=== PATIENT | female | born 1970 | race Caucasian/White ===

== ENCOUNTER 2019-11-20 20:24 | Emergency (ER) | payer MEDICAID, SELFPAY ==
[2019-11-20 20:25] VITALS: BP 127/73; PULSE 79; RESP 18; TEMP 36.3; O2SAT 99; BMI 32.4
--- NOTE | 2019-11-20 20:33 | ED.VIS.DENTA ---
History of Present Illness Chief Complaint: Dental Informant: Patient Onset: Month(s) Context: Gradual Onset Timing: Continuous, Intermittent, Waxes and wanes Quality: Pain lower teeth Location: Right canine to left canine Current Severity: Mild Maximum Severity: Moderate Worsened by: Palpation and chewing Relieved by: NSAIDs Associated Symptoms: Jaw Swelling, - - She denies fever or chills. She denies hot or cold intolerance Narrative: Patient is a 49-year-old woman who presents with dental pain. Patient states she is embarrassed to show me her teeth. She denies facial swelling or redness. She complains of pain over the mental portion of the jaw. She denies difficulty opening closing her mouth. She denies history of medic fever, murmur, SBE, IV drug use or being immune suppressed. She is on no medication. She has no antibiotic allergy. She does not have a dentist. Prior similar symptoms: Yes Recent Illness/Hospitalization: No - Past Medical History (1) No significant past medical history Status: Acute Past Medical History - Allergies and Home Meds Allergies/Adverse Reactions: Allergies No Known Allergies Allergy (Verified 11/20/19 20:27) Primary Care Physician: NOT,DEFINED [NON-STAFF] - Prior records reviewed: No Surgical History: noncontributory Lives: Alone Smoking Status: Never smoker Alcohol: None Review of Systems General: Denies: Chills, Fever, Malaise Eyes: Denies: Visual changes - bilaterally, Blurred Vision - bilaterally ENT: Reports: - - Dental pain lower front teeth. Denies: Rhinorrhea, Sore throat Cardiovascular: Denies: Chest pain Respiratory: Denies: Dyspnea, Cough Gastrointestinal: Denies: Nausea, Vomiting Musculoskeletal: Denies: Myalgias, Arthralgias, Neck pain, Back pain, Swelling, Extremity Pain, -, - Skin: Denies: Rash, Wounds Hematologic: Denies: Easy bruising, Easy bleeding Allergy: Reports: Swelling of the mouth, Swelling of the tongue Physical Exam Vital Signs/Narrative: Vital Signs Temp Pulse Resp BP Pulse Ox 11/20/19 20:25 97.4 F L 79 18 127/73 H 99 Inital Vital Signs reviewed: Yes General: Well nourished, Well developed Head: Normocephalic, Atraumatic ENT: Moist mucous membranes, Nasal congestion, No nasal trauma, No rhinorrhea. Negative for: Sinus tenderness Mouth/Throat: Normal posterior oropharynx, No sublingual edema, Normal Stensen's duct, Dental abscess, Gingivitis, Tenderness on tooth percussion, Widespread dental decay - There is exposure of pulp and dentin from tooth number #22 through 27. There is evidence of periodontal disease. There is significant tartar buildup. There is retraction of the gingiva. There is no evidence of Ludewig's angina.. Negative for: Normal inspection lips/gums, Normal oral mucosa, No dental tenderness, Apthous ulcer, Dental trauma, Trismus Neck: Supple, No lymphadenopathy, Nontender, No JVD, Anterior submental lymphadenopathy. Negative for: Anterior submandibular lymphadenopathy, Posterior submandibular lymphadenopathy, Posterior submental lymphadenopathy, Soft tissue swelling, Submandibular soft tissue swelling Cardiovascular: Regular rate, Regular rhythm, No murmurs, Normal S1, Normal S2 Respiratory: No distress, CTA bilaterally Skin: Normal color, No rash, - - No evidence of facial cellulitis. Neurological: Alert, Oriented x3, Cranial nerves II-XII grossly intact, Normal Strength, Normal Sensation Psychological: Normal affect Diagnostic/Tx/Re-eval - Medical Decision Making And has significant dental decay with concern for apical abscess involving tooth #25 or 26. There are caries involving the canine and incisors. There is no evidence of Ludewig's angina. There is no trismus. The trachea is midline with no inspiratory expiratory stridor. She was treated with antibiotics. . She reports pain is relieved with ibuprofen. She was informed to follow-up with a dentist. ED Disposition - Plan for ED Patient: Disposition: Home or Assisted Living Diagnosis: Dental caries extending into pulp, Dental caries extending into dentine, Apical abscess Instructions: ED CAVITY Dental, ED Abscess Antibiotic Treatment Only Prescriptions: Penicillin V Potassium 500 mg PO 4X/DAY #40 tab Transmission Status: Pending to [facility] Referrals: NOT,MARTINE [NON-STAFF] - Tracy Bello [NON-STAFF] - As soon as possible
[2019-11-20] MEDS: Penicillin Vk 250 MG Tablet 500 MG PO (20:52)
== END 2019-11-20 21:01 | disposition home or self-care (01) ==
PROVIDERS: Emergency Provider Emergency Medicine
DX: K04.7 Periapical abscess without sinus (principal); K02.9 Dental caries, unspecified
CPT/HCPCS: 99283

== ENCOUNTER 2020-01-04 17:06 | Emergency (ER) | payer MEDICAID, SELFPAY ==
[2020-01-04 17:07] VITALS: BP 126/84; PULSE 90; RESP 18; TEMP 37.2; O2SAT 99; BMI 32.6
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
[2020-01-04] MEDS: Ibuprofen 600 MG Tablet PO (18:24)
[2020-01-04] MEDS: hydrOXYzine PAM 25 MG Capsule PO (18:25)
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
[2020-01-04 18:51] VITALS: RESP 16
== END 2020-01-04 18:53 | disposition home or self-care (01) ==
LOC: ED 17:30
PROVIDERS: Emergency Provider Student in an Organized Health Care Education/Training Program
DX: F41.9 Anxiety disorder, unspecified (principal); F17.200 Nicotine dependence, unspecified, uncomplicated; Z86.59 Personal history of other mental and behavioral disorders
CPT/HCPCS: 99284

== ENCOUNTER 2022-03-08 16:24 | Emergency (ER) | payer MEDICAID, SELFPAY ==
[2022-03-08 16:25] VITALS: BP 117/76; PULSE 83; RESP 15; TEMP 36.9; O2SAT 99; BMI 31.6
--- NOTE | 2022-03-08 17:33 | EDS_ITS ---
HPI History of Present Illness Chief Complaint: Lower Extremity Injury Informant: patient Onset/Context/Timing Onset: Yesterday Narrative Narrative: Patient present secondary to right foot injury. Yesterday she was barefoot and stepped on a thorny tinoco from a [employer]. She had several foreign stuck in the bottom of her foot. She scrubbed the area and try to remove everything. She also used wax over the palm of her foot and let that dry. She pulled that off to try to remove any remaining thorns. She presents today see that she still having burning in the area and is not sure that she removed everything. PFS PFS Medical History no medical history no medical history Allergy/AdvReac Type Severity Reaction Status Date / Time No Known Allergies Allergy Verified 03/08/22 16:25 Surgical History no surgical history Social History Smoking Status: Current every day smoker tobacco type: cigarettes ROS ROS ED Constitutional Constitutional ED: Denies chills or fever(s) Eyes Eyes: Denies change in vision or discharge from eye(s) ENT ENT ED: Denies discharge from eye(s), rhinorrhea or sore throat Cardiovascular Cardiovascular: Denies chest pain or palpitations Respiratory/Chest Respiratory/Chest: Denies cough or dyspnea Gastrointestinal Gastrointestinal: Denies abdominal pain, diarrhea, nausea or vomiting Genitourinary Genitourinary ED: Denies dysuria Musculoskeletal Musculoskeletal: Reports extremity pain; Denies back pain Integumentary Denies Abrasions or rash Neurologic Neurologic: Denies headache(s) or weakness Allergic/Immunologic Allergic/Immunologic ED: Denies lip swelling or urticaria EXAM Physical Exam Const Vital Signs: 03/08/22 16:25 Temperature 98.5 F Temperature Source Temporal Pulse Rate 83 Respiratory Rate 15 Blood Pressure 117/76 Blood Pressure Mean 89 Pulse Ox 99 Oxygen Delivery Method Room Air Positive well nourished and well developed General Appearance ED: well developed HEENT Reports normocephalic and head/scalp atraumatic Eyes PERRL and EOMs intact bilaterally Neck supple Chest Wall inspection of chest normal Resp normal respiratory effort Cardio regular rate and regular rhythm GI Palpation: soft Extremity Extremity Narrative: Dried wax noted to the ball of the right foot. No obvious foreign bodies appreciated. No bony tenderness. Neuro oriented x3 and no sensory deficits noted Sensorium / Orientation: alert Motor Exam: strength 5/5 throughout Psych mental status grossly normal MDM MDM MDM Narrative Medical decision making narrative: Right foot is soaked in warm soapy water. Following this patient has no further pain to the area. Area is able to be scrubbed and cleansed without difficulty. No foreign body is noted. 4 x 4 gauze pads were placed along the bottom of her foot and Herman wrap applied. Patient will watch for any sign of infection. Return instructions given. Discharge Plan Triage Chief Complaint: Lower Extremity Injury ED Provider: Pam Staples Dx/Rx/DC Orders Clinical Impression: Acute foreign body of right foot Instructions: ED Foreign Body, Soft Tissue (Removed) Primary Care Provider: Care Physician,No Primary Referrals: Tash Ramirez DO [Med Staff - Active Staff] - As Needed Care Physician,No Primary [Primary Care Provider] - Disposition Disposition: Home, Self Care
== END 2022-03-08 18:46 | disposition home or self-care (01) ==
PROVIDERS: Emergency Provider Emergency Medicine; Visit Provider Emergency Medicine
DX: S90.851A Superficial foreign body, right foot, initial encounter (principal); W22.8XXA Striking against or struck by other objects, initial encounter; F17.210 Nicotine dependence, cigarettes, uncomplicated
CPT/HCPCS: 99282

== ENCOUNTER 2022-06-04 18:36 | Emergency (ER) | payer MEDICAID, SELFPAY ==
[2022-06-04 18:37] VITALS: BP 128/79; PULSE 103; RESP 16; TEMP 36.6; O2SAT 100; BMI 31.2
--- NOTE | 2022-06-04 19:02 | EDS_ITS ---
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 Yesterday she developed left groin pain. There is a sore area in the inguinal area that is sore and painful, and somewhat tender to touch. Occasionally she has shooting pain towards her groin. She denies any fevers or chills. No chest pain or shortness of breath. No nausea or vomiting, no diarrhea or problems with bowel movements. She states that she was told by her glass washer not to sit on her foot like she usually does because she gets problems with tendinitis, but sometimes at home she will sit on her foot with her foot digging into her sciatic notch. She presents to the emergency department today mainly because she states she was using Dr. Hill. She looked up things like colon cancer and is afraid that the pain in her groin is secondary to colon cancer although she denies any rectal bleeding, constipation, problems with bowel movements, or any other things. [facility] PFS Medical History Anxiety Depression Sciatic leg pain Medical History no medical history Allergy/AdvReac Type Severity Reaction Status Date / Time No Known Allergies Allergy Verified 06/04/22 18:37 Social History Smoking Status: Current every day smoker tobacco type: cigarettes ROS ROS ED ROS Narrative Constitutional: No fever, no chills. HEENT: No sore throat. No neck pain. No loss of vision. No rhinorrhea. Cardiovascular: No chest pain. No palpitations. No pedal edema. Respiratory: No cough, no shortness of breath. Abdominal: No abdominal pain. No nausea. No vomiting. Genitourinary: No dysuria. No hematuria. Musculoskeletal: No myalgias. No arthralgias. Left inguinal groin pain. Occasional burning, radicular left leg pain. Neurologic: No headaches. No dizziness. No lightheadedness. Skin: No rash. No change in color. Psychiatric: No depression. No anxiety. EXAM Physical Exam Narrative Exam Narrative: Afebrile. Vital signs noted. HEENT: Normocephalic. Atraumatic. PERRL, EOMI. Neck soft and supple. No point tenderness or step off. Cardiovascular: Regular rate and rhythm. No murmurs, rubs, or gallops appreciated. Respiratory: No tachypnea. Lungs clear to auscultation bilaterally. Gastrointestinal: Abdomen soft, nontender, with normoactive bowel sounds. No rebound or guarding. Neurological: Awake. Alert. Nonfocal, nonlateralizing. Skin: No rash. Normal color. No pallor. Musculoskeletal: No pedal edema. Full range of motion extremities. Mild tenderness to palpation left inguinal area along musculature. Full range of motion of left hip. Neurovascular intact distally with palpable dorsalis pedis pulse. No vertebral point tenderness or bony step-off of lumbar spine. Const Vital Signs: 06/04/22 18:37 Temperature 97.9 F Temperature Source Temporal Pulse Rate 103 H Respiratory Rate 16 Blood Pressure 128/79 H Blood Pressure Mean 95 Pulse Ox 100 Oxygen Delivery Method Room Air MDM MDM MDM Narrative Medical decision making narrative: Patient's medical screening exam is negative. I am not concerned for DVT and do not feel that ultrasound is indicated. She has reproducible pain over the musculature of her left inguinal area and I do think that she has a groin strain. She is also describing sciatica. I do feel that this may be exacerbated by her sitting on her foot and aggravating that nerve. I offered her muscle relaxers but she declined. She will take [id number] medications and put ice on her sore areas. She will follow-up with her primary care physician regarding her lumbar radiculopathy as needed. There are no red flag signs for cauda equina syndrome. At this point in time, I feel she could be discharged home safely with symptomatic treatment and follow-up with her primary care provider. Return instructions to the emergency department were reviewed. Disposition is discharged home in stable condition. Discharge Plan Triage Chief Complaint: Lower Extremity Injury ED Provider: Black Briseno Dx/Rx/DC Orders Clinical Impression: Strain of left inguinal muscle, Sciatica, Encounter for medical screening examination Instructions: Low Back Leg Pain Causes, ED Groin Strain, ED Screening Exam Medical Nonurgent, ED Sciatica Primary Care Provider: Care Physician,No Primary Referrals: Care Physician,No Primary [Primary Care Provider] - Activity Restrictions/Additional Instructions: Follow-up with your primary care physician as soon as possible. Disposition Disposition: Home, Self Care
== END 2022-06-04 19:13 | disposition home or self-care (01) ==
PROVIDERS: Emergency Provider Emergency Medicine; Visit Provider Emergency Medicine
DX: S76.212A Strain of adductor muscle, fascia and tendon of left thigh, initial encounter (principal); X58.XXXA Exposure to other specified factors, initial encounter; Y93.E9 Activity, other interior property and clothing maintenance; M54.32 Sciatica, left side; M54.16 Radiculopathy, lumbar region; F17.210 Nicotine dependence, cigarettes, uncomplicated
CPT/HCPCS: 99282

== ENCOUNTER 2023-04-01 17:51 | Emergency (ER) | payer MEDICAID, SELFPAY ==
[2023-04-01 17:52] VITALS: BP 124/73; PULSE 82; RESP 18; TEMP 36.6; O2SAT 100; BMI 28.0
--- NOTE | 2023-04-01 18:14 | EDS_ITS ---
HPI History of Present Illness Chief Complaint: General Illness Detail of Chief Complaint: Right leg pain and concern for abnormal chest x-ray Informant: patient Narrative Narrative: Patient presents to the emergency department with multiple complaints. Her main complaint is that she has had pain in her right leg for several months. She sees podiatry was treating her for Achilles tendinitis and plantar fasciitis. She complains of pain just superior to her knee posteriorly. Patient feels like it is muscle type pain and feels like the pain is coming up from her Achilles and ankle and going up towards her knee and thigh. She has history of sciatica on the left side. Patient also had an appointment with her primary care physician who noted a wheeze on her exam last week and ordered a chest x-ray. Her chest x-ray was performed at another facility and she still has not had the results back yet and is very concerned about it. Patient denies fever or significant cough. She is a smoker. [facility] Medical History Anxiety Depression Sciatic leg pain Medical History no medical history Home Medications cyclobenzaprine 10 mg tablet 10 mg PO TID PRN Muscle Spasm #20 TABLETS 04/01/23 [Rx Last Taken Unknown] Allergy/AdvReac Type Severity Reaction Status Date / Time No Known Allergies Allergy Verified 04/01/23 17:52 Social History Smoking Status: Current every day smoker tobacco type: cigarettes ROS ROS ED Review of Systems ROS Unobtainable: other Constitutional Constitutional ED: Reports lethargy; Denies chills, fever(s), sweats or weight loss Eyes Eyes: Denies blurry vision, change in vision or diplopia ENT ENT ED: Denies rhinorrhea or sore throat Cardiovascular Cardiovascular: Denies chest pain, orthopnea or racing heartbeat Respiratory/Chest Respiratory/Chest: Denies cough, dyspnea, dyspnea on exertion, orthopnea or sputum Gastrointestinal Gastrointestinal: Denies abdominal pain, diarrhea, nausea or vomiting Genitourinary Genitourinary ED: Denies dysuria, hematuria or urinary frequency Musculoskeletal Musculoskeletal: Reports other Details: Right leg pain ; Denies arthralgias, back pain, myalgias or neck pain Integumentary Denies abscess, Abrasions or rash Neurologic Neurologic: Denies headache(s) or weakness Psychiatric Psychiatric: Denies anxiety, depression or suicidal thoughts Endocrine Endocrinology: Denies polydipsia, polyphagia or polyuria Hematologic/Lymphatic Hematologic/Lymphatic: Denies easy bleeding, easy bruising or lymphadenopathy Allergic/Immunologic Allergic/Immunologic ED: Denies mouth swelling, tongue swelling or urticaria EXAM Physical Exam Const Vital Signs: 04/01/23 17:52 Temperature 98 F Temperature Source Temporal Pulse Rate 82 Respiratory Rate 18 Blood Pressure 124/73 H Blood Pressure Mean 90 Pulse Ox 100 Oxygen Delivery Method Room Air Positive well nourished and well developed General Appearance ED: well developed and NAD HEENT Reports TM's clear and moist mucous membranes normocephalic and atraumatic; Negative for trauma or tenderness Tympanic Membrane ED: Yes TM's clear Eyes PERRL and EOMs intact bilaterally General Eye ED: Negative for pale conjunctiva or scleral icterus Neck no lymphadenopathy, supple and no JVD General: Negative for tenderness Chest Wall inspection of chest normal and palpation of chest normal Chest: Negative for tenderness Resp normal respiratory effort and clear to auscultation bilaterally Effort and Inspection: Negative for respiratory distress or pain with movement Auscultation: Negative for rhonchi, wheezes or diminished lung sounds Cardio regular rate, regular rhythm, S1 normal heart sound, S2 normal heart sound and no murmurs Peripheral Pulses: pulses 2+ throughout GI normal to inspection, nondistended, normoactive bowel sounds, soft to palpation, non-tender, non-distended and no masses Back/Spine no CVA tenderness and no thoracic nor lumbar tenderness Extremity normal to inspection Extremity Narrative: Right leg-patient has some tenderness palpation over the right posterior distal thigh and hamstrings that seems to reproduce her pain. There is no ropes or cords palpated. No significant edema or swelling of the extremity. There is no engorged veins noted. Neurovascular intact General Extremety ED: Negative for edema General Extremity: Negative for edema Neuro oriented x3, CN's II-XII intact bilaterally, no sensory deficits noted and gait normal Sensorium / Orientation: awake, alert, oriented to person, oriented to place and oriented to time Motor Exam: strength 5/5 throughout and strength abnormal Psych mental status grossly normal Skin no rashes or lesions noted and no wounds MDM MDM MDM Narrative Medical decision making narrative: Patient had a chest x-ray that was normal. I did order a ultrasound to rule out DVT of the right lower extremity which will have to be done tomorrow. I will write her prescription for Flexeril for her neck muscle pain. 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 Radiography Diagnostic Testing: Clinical Impression(s) from Imaging Studies Chest X-Ray 04/01/23 18:19 IMPRESSION: No radiographic evidence of acute cardiopulmonary disease. Electronically Signed: John Kent MD at 19:06 EDT , 1 view chest x-ray obtained interpreted by myself as no evidence of infiltrate or pneumothorax or acute disease process. Radiology in agreement. Discharge Plan Triage Chief Complaint: General Illness ED Provider: Tania Renner Dx/Rx/DC Orders Clinical Impression: Leg pain, right, Neck pain Instructions: ED Neck Pain, ED Pain, Acute, Uncertain Cause Prescriptions: New cyclobenzaprine [cyclobenzaprine] 10 mg tablet 10 mg PO TID PRN (Reason: Muscle Spasm) Qty: 20 0RF Primary Care Provider: Moe Marks Referrals: Care Physician,No Primary [Non-Staff] - 3-5 Days Disposition Disposition: Home, Self Care Discharge Date/Time: 04/01/23 19:30
--- NOTE | 2023-04-01 18:19 | RAD_ITS ---
INDICATION: Hypertension EXAMINATION/TECHNIQUE: X-RAY - portable upright AP chest x-ray COMPARISON: None. FINDINGS: LINES/DEVICES: None. LUNGS: No consolidation, edema or effusion. No pneumothorax. MEDIASTINUM AND CARDIOVASCULAR STRUCTURES: Cardiac silhouette not enlarged. Central airways and mediastinal contour are unremarkable. BONES AND SOFT TISSUES: Unremarkable. RAD/Chest 1 View (Portable) IMPRESSION: No radiographic evidence of acute cardiopulmonary disease. Electronically Signed: John Kent MD at 19:06 EDT ,
== END 2023-04-01 19:30 | disposition home or self-care (01) ==
PROVIDERS: Emergency Provider Emergency Medicine; PCP Student in an Organized Health Care Education/Training Program; Visit Provider Emergency Medicine
DX: M79.604 Pain in right leg (principal); M54.2 Cervicalgia; F17.210 Nicotine dependence, cigarettes, uncomplicated
CPT/HCPCS: 71045; 99282

== ENCOUNTER → 2023-04-02 | Outpatient (CLI) | payer MEDICAID, SELFPAY ==
--- NOTE | 2023-04-02 12:47 | VDLE_ITS ---
Reason For Study: Pain RLE RIGHT LEFT GSV is normal. CFV is compressible, spontaneous, phasic, CFV is compressible, spontaneous, phasic, competent, and demonstrates normal competent and demonstrates normal augmentation. augmentation. FV is compressible, spontaneous, phasic, competent and demonstrates normal augmentation. POP V is compressible, spontaneous, phasic, competent and demonstrates normal augmentation. T/P Trunk is compressible. PTV is compressible. RT PerV is compressible. Procedure This is a venous duplex using B-mode, color flow and spectral Doppler. Exam performed in department. VL/Venous Duplex US, Unilateral Interpretation Summary Deep veins of the right lower extremity are patent and compressible segmentally . There is no evidence of right lower extremity deep vein thrombosis. The right great sapheno us vein appears patent and compressible segmentally. Ordering Physician: Tania Renner Referring Physician: Moe Marks Performed By: Elyssa Herrera, RACHEL, RVT
== END | disposition home or self-care (01) ==
LOC: CVS 12:23
PROVIDERS: PCP Student in an Organized Health Care Education/Training Program; Visit Provider Emergency Medicine
DX: M79.604 Pain in right leg (principal)
CPT/HCPCS: 93971

== ENCOUNTER 2023-04-23 18:39 | Emergency (ER) | payer MEDICAID, SELFPAY ==
[2023-04-23 18:40] VITALS: BP 117/80; PULSE 84; RESP 18; TEMP 36.6; O2SAT 100; BMI 28.7
--- NOTE | 2023-04-23 18:53 | EDS_ITS ---
HPI HPI - Female History of Present Illness Chief Complaint: Complaint Narrative Narrative: 53-year-old female who denies significant past medical history presents with dysuria and urinary frequency that began this morning. She states that yesterday, everything was fine, but this morning she awoke and had a twinge of pain and burning with urination. She endorses urinary frequency now and states that she was going every few minutes. She went to the [employer] and bought maximum strength Azo and took 2 of those and now complains of orange urine. She denies any fevers or chills, no nausea or vomiting, no back pain. She does not have any vaginal discharge or vaginal bleeding as she is postmenopausal. [facility] Medical History Anxiety Depression Sciatic leg pain Home Medications cyclobenzaprine 10 mg tablet 10 mg PO TID PRN Muscle Spasm #20 TABLETS 04/01/23 [Rx Last Taken Unknown] sulfamethoxazole 800 mg-trimethoprim 160 mg tablet (Bactrim DS) 1 tab PO BID #14 tabs 04/23/23 [Rx Last Taken Unknown] Allergy/AdvReac Type Severity Reaction Status Date / Time No Known Allergies Allergy Verified 04/23/23 18:40 Social History Smoking Status: Former smoker ROS ROS ED ROS Narrative Constitutional: No fever, no chills. HEENT: No sore throat. No neck pain. No loss of vision. No rhinorrhea. Cardiovascular: No chest pain. No palpitations. No pedal edema. Respiratory: No cough, no shortness of breath. Abdominal: No abdominal pain. No nausea. No vomiting. Genitourinary: Positive dysuria and urinary frequency. No gross hematuria but orange urine secondary to Azo use. Musculoskeletal: No myalgias. No arthralgias. Neurologic: No headaches. No dizziness. No lightheadedness. Skin: No rash. No change in color. Psychiatric: No depression. No anxiety. EXAM Physical Exam Narrative Exam Narrative: Afebrile. Vital signs noted. HEENT: Normocephalic. Atraumatic. PERRL, EOMI. Neck soft and supple. No point tenderness or step off. Cardiovascular: Regular rate and rhythm. No murmurs, rubs, or gallops appreciated. Respiratory: No tachypnea. Lungs clear to auscultation bilaterally. Gastrointestinal: No CVA tenderness to percussion bilaterally. Abdomen soft, nontender, with normoactive bowel sounds. No rebound or guarding. Neurological: Awake. Alert. Nonfocal, nonlateralizing. Ambulatory in ED without difficulty. Skin: No rash. Normal color. No pallor. Musculoskeletal: No pedal edema. Full range of motion extremities. Const Vital Signs: 04/23/23 18:40 Temperature 97.8 F Temperature Source Temporal Pulse Rate 84 Respiratory Rate 18 Blood Pressure 117/80 Blood Pressure Mean 92 Pulse Ox 100 Oxygen Delivery Method Room Air MDM MDM MDM Narrative Medical decision making narrative: Patient was reassured that her use of Azo was the cause of her bright orange urine currently. I do not feel that blood work is indicated. In the dif ferential diagnosis is UTI versus UTI symptoms without infection. Urinalysis will be obtained and reviewed. I do know that her macro analysis would be skewed secondary to her urine color change. I reviewed her laboratory work, and her prior ED visits. She has positive nitrites and 5-10 WBCs with 1+ bacteria. I do feel she has more of a cystitis. She will be treated with her first dose of Bactrim DS here and a prescription written for the next week. She was reassured as she is very anxious regarding her diagnosis of cystitis. She will follow-up with her primary care provider. I do not feel she requires admission at this time, her laboratory work, or imaging. Return instructions to the emergency department were reviewed. Disposition is discharged home, in stable condition. History & Record Review Discussion w/independent historian: Patient Additional record(s) reviewed:: Prior ED visit Lab Data Attestation: I reviewed the patient's lab results. Labs: Laboratory Results - last 24 hr 04/23/23 19:15 Urine Color Yellow Urine Clarity Sl. Cloudy Urine pH 7.0 Ur Specific [place] 1.010 Urine Protein 15 H Urine Glucose (UA) Normal Urine Ketones Negative Urine Occult Blood 10 H Urine Nitrite Positive H Urine Bilirubin 3 H Urine Urobilinogen 8 H Ur Leukocyte Esterase 100 H Urine RBC 0-5 SEEN Urine WBC 5-10 SEEN Ur Squamous Epith Cells 0-5 SEEN Amorphous Sediment 1+ PHOS Urine Bacteria 1+ Urine Mucus 0 SEEN Discharge Plan Triage Chief Complaint: Complaint ED Provider: Black Briseno Dx/Rx/DC Orders Clinical Impression: Dysuria, Cystitis Instructions: ED Cystitis Female Adult Prescriptions: New sulfamethoxazole-trimethoprim [Bactrim DS] 800-160 mg tablet 1 tab PO BID Qty: 14 0RF No Action cyclobenzaprine [cyclobenzaprine] 10 mg tablet 10 mg PO TID PRN (Reason: Muscle Spasm) Qty: 20 0RF Primary Care Provider: Meli Bernard Referrals: Moe Marks DO [Non-Staff] - Activity Restrictions/Additional Instructions: Antibiotics as directed. Follow-up with Dr. Bernard in the next 1 to 2 weeks, if symptoms worsen. Return with fever, back pain, new or worsening symptoms. Disposition Disposition: Home, Self Care
[2023-04-23 19:20] LABS: Mucous, Urine 0 SEEN /hpf (<or=2+)
[2023-04-23 19:37] LABS: Color, Urine Yellow (Yellow); Glucose, Dipstick Normal (Normal); Ketone-Dipstick Negative (Negative); Leukocyte Esterase-Dipstick 100 /ul (Negative); Nitrite-Dipstick Positive (Negative); Occult Blood-Urine 10 /ul (Negative); Protein-Dipstick 15 mg/dl (Negative); Urine Clarity Sl. Cloudy (Clear); Urine Urobilinogen 8 mg/dl (Normal)
[2023-04-23 19:38] LABS: Urine Bilirubin Dipstick 3 mg/dL (Negative)
[2023-04-23 19:45] LABS: Amorphous Sediment 1+ PHOS; Bacteria 1+ /hpf (None Seen); Red Blood Cells-Urine 0-5 SEEN /hpf (0-5); Squamous Epithelial Cells - UA 0-5 SEEN /hpf (5-10); White Blood Cells 5-10 SEEN /hpf (0-5)
[2023-04-23] MEDS: Smz/Tmp Ds Tablet 1 TABLET PO (20:10)
== END 2023-04-23 20:21 | disposition home or self-care (01) ==
PROVIDERS: Emergency Provider Emergency Medicine; PCP Family Medicine; Visit Provider Emergency Medicine
DX: R30.0 Dysuria (principal); N30.90 Cystitis, unspecified without hematuria; Z87.891 Personal history of nicotine dependence
CPT/HCPCS: 81001; 99282

== ENCOUNTER → 2023-09-11 | Outpatient (CLI) | payer MEDICAID, SELFPAY ==
[2023-09-11 17:49] LABS: Absolute Lymphocyte Count 1.28 X10^3/uL (0.83-4.51); Absolute Neutrophil Count 5.5 X10^3/uL (2.0-7.7); Basophil# 0.05 X10^3/uL; Basophil% 0.7 % (0-1); Eosinophil# 0.06 X10^3/uL; Eosinophils% 0.8 % (0-5); Hematocrit 41.2 % (37-47); Hemoglobin 13.9 g/dL (12.0-15.0); Lymphocyte # 1.28 X10^3/ul (0.83-4.51); Lymphocyte % 17.3 % (19-41); Mean Corp Hgb Conc 33.7 g/dL (32-36); Mean Corpuscular Hgb 34.7 pg (27.0-32.0); Mean Corpuscular Volume 102.7 fL (81-99); Mean Platelet Vol. 10.5 fl (6.2-12.0); Monocyte# 0.47 X10^3/uL; Monocyte% 6.4 % (0-10); NRBC Flagged by Analyzer 0 % (0-5); Neutrophil # 5.52 X10^3/uL (2.7-7.7); Neutrophil % 74.5 % (47-70); Platelet Count 201 K/mm3 (150-450); RBC Distribution Width CV 13.3 % (11.6-14.6); RBC Distribution Width SD 50.9 fl (35.1-43.9); Red Blood Count 4.01 M/mm3 (4.2-5.4); White Blood Count 7.4 K/mm3 (4.4-11.0)
[2023-09-11 17:50] LABS: Absolute Lymphocyte Count 1.49 X10^3/uL (0.83-4.51); Absolute Neutrophil Count 1.9 X10^3/uL (2.0-7.7); Basophil# 0.05 X10^3/uL; Basophil% 1.2 % (0-1); Eosinophil# 0.16 X10^3/uL; Hematocrit 40.4 % (37-47); Hemoglobin 12.4 g/dL (12.0-15.0); Lymphocyte # 1.49 X10^3/ul (0.83-4.51); Lymphocyte % 37.1 % (19-41); Mean Corp Hgb Conc 30.7 g/dL (32-36); Mean Corpuscular Volume 91.2 fL (81-99); Mean Platelet Vol. 10.7 fl (6.2-12.0); Monocyte# 0.44 X10^3/uL; Monocyte% 10.9 % (0-10); NRBC Flagged by Analyzer 0 % (0-5); Neutrophil # 1.87 X10^3/uL (2.7-7.7); Neutrophil % 46.6 % (47-70); Platelet Count 227 K/mm3 (150-450); RBC Distribution Width SD 43.6 fl (35.1-43.9); Red Blood Count 4.43 M/mm3 (4.2-5.4)
[2023-09-11 18:08] LABS: Hemoglobin A1c 5.3 % (3.8-5.6)
[2023-09-11 18:22] LABS: ALB/GLOB Ratio 0.9 RATIO (0.9-2.4); AST(SGOT) 40 U/L (15-37); Alanine Aminotransfer ALT/SGPT 55 U/L (13-56); Albumin, Serum 3.5 g/dL (3.2-5.0); Alkaline Phosphatase 125 U/L (45-117); Anion Gap 6 (5-15); BUN 24 mg/dL (7-18); BUN/Creat Ratio 25.2 RATIO (10-20); Calcium,Total 9.9 mg/dL (8.5-10.1); Chloride 108 mmol/L (98-107); Creatinine, Serum 0.95 mg/dL (0.55-1.02); EST Glomerular Filtration Rate 65 mL/min (>60); Est Glom Filt Rate - Afr Amer 78 mL/min (>60); Globulin 3.7 g/dL (2.2-4.2); Glucose 140 mg/dL (74-106); Potassium 4.1 mmol/L (3.5-5.1); Protein, Total 7.2 g/dL (6.4-8.2); Sodium Level 139 mmol/L (136-145)
[2023-09-11 18:28] LABS: ALB/GLOB Ratio 1.2 RATIO (0.9-2.4); AST(SGOT) 17 U/L (15-37); Alanine Aminotransfer ALT/SGPT 23 U/L (13-56); Albumin, Serum 4.1 g/dL (3.2-5.0); Alkaline Phosphatase 53 U/L (45-117); Anion Gap 4 (5-15); BUN 21 mg/dL (7-18); BUN/Creat Ratio 23.2 RATIO (10-20); Chloride 105 mmol/L (98-107); Cholesterol 262 mg/dL (200); EST Glomerular Filtration Rate 69 mL/min (>60); Est Glom Filt Rate - Afr Amer 83 mL/min (>60); Globulin 3.5 g/dL (2.2-4.2); Glucose 92 mg/dL (74-106); High Density Lipoprotein 99 mg/dL; Potassium 4.2 mmol/L (3.5-5.1); Protein, Total 7.6 g/dL (6.4-8.2); Sodium Level 138 mmol/L (136-145); Thyroid Stim Hormone (TSH) 9.66 uIU/mL (0.358-3.74); Triglycerides 56 mg/dL; Very Low Density Lipoprotein 11 mg/dL (5-40)
== END | disposition home or self-care (01) ==
LOC: MFPLAB 14:38
PROVIDERS: PCP Family Medicine; Visit Provider Family Medicine
DX: Z13.0 Encounter for screening for diseases of the blood and blood-forming organs and certain disorders involving the immune mechanism (principal); Z13.228 Encounter for screening for other metabolic disorders
CPT/HCPCS: 36415; 80053; 80061; 83036; 84443; 85025

== ENCOUNTER → 2023-09-14 | Outpatient (CLI) | payer MEDICAID, SELFPAY ==
[2023-09-14 16:27] LABS: Free T3 2.4 pg/mL (2.18-3.98); T4 Free Direct 0.77 ng/dL (0.76-1.46)
[2023-09-18 18:07] LABS: Thyroglobulin Antibody < 1.0 IU/mL (0.0-0.9); Thyroid Peroxidase AB 373 IU/mL (0-34); Thyroid Stim Immunoglob <0.10 IU/L (0.00-0.55)
== END | disposition home or self-care (01) ==
LOC: MFPLAB 11:37
PROVIDERS: PCP Family Medicine; Visit Provider Family Medicine
DX: R79.89 Other specified abnormal findings of blood chemistry (principal)
CPT/HCPCS: 36415; 84439; 84443; 84445; 84481; 86376; 86800

== ENCOUNTER 2023-09-23 20:10 | Emergency (ER) | payer MEDICAID, SELFPAY ==
[2023-09-23 20:12] VITALS: BP 132/79; PULSE 81; RESP 18; TEMP 35.7; O2SAT 100; BMI 29.2
--- NOTE | 2023-09-23 20:17 | ED.RN ---
This RN attempted to put a patient in a gown and the patient stated No, I do not want to be put in a gown. They make me nervous. This RN stated It's up to the doctors and what tests they order on whether or not you need to be in a gown. the patient stated Nope. I will not be placed in a gown.
[2023-09-23 20:52] VITALS: BP 134/89; PULSE 80; RESP 16; TEMP 36.6; O2SAT 97
--- NOTE | 2023-09-23 20:53 | EX.ED.DYSGE1 ---
HPI History of Present Illness Chief Complaint: Mental Health Informant: patient and spouse/S.O. Narrative Narrative: Patient here with symptoms other evaluation increasing anxiety after recent blood work. History of depression anxiety on medications. This was changed on her last visit approximately 5 days ago. She had blood work 12 days ago had elevated cholesterol and LDL and concerns for thyroid. She was started on thyroid medications. She is concerned with these numbers and has decreased her eating per her significant other. She denies suicidal homicidal ideations. I reviewed her lab work, she had LDL of 152, her total cholesterol 260. HDL was 99. She had TSH of 10 however free levels of T3 and T4 were in the normal range. This was in the low normal range. [facility] Medical History Anxiety Anxiety and depression Depression Sciatic leg pain Home Medications cyclobenzaprine 10 mg tablet 10 mg PO TID PRN Muscle Spasm #20 TABLETS 04/01/23 [Rx Last Taken Unknown] sulfamethoxazole 800 mg-trimethoprim 160 mg tablet (Bactrim DS) 1 tab PO BID #14 tabs 04/23/23 [Rx Last Taken Unknown] sulfamethoxazole 800 mg-trimethoprim 160 mg tablet (Bactrim DS) 1 tab PO BID #14 tabs 04/23/23 [Rx Last Taken Unknown] sertraline 50 mg tablet 50 mg PO DAILY #30 tabs 07/10/23 [Rx Last Taken Unknown] Allergy/AdvReac Type Severity Reaction Status Date / Time No Known Allergies Allergy Verified 09/23/23 20:11 Social History Smoking Status: Former smoker ROS ROS ED Constitutional Constitutional ED: Denies chills, fever(s) or sweats Eyes Eyes: Denies change in vision ENT ENT ED: Denies dysphagia or sore throat Cardiovascular Cardiovascular: Denies chest pain, leg edema, palpitations or racing heartbeat Respiratory/Chest Respiratory/Chest: Denies cough, dyspnea or dyspnea on exertion Gastrointestinal Gastrointestinal: Denies abdominal pain, diarrhea, nausea or vomiting Genitourinary Genitourinary ED: Denies dysuria, hematuria or urinary frequency Musculoskeletal Musculoskeletal: Denies back pain, extremity pain or neck pain Integumentary Denies rash or wounds Neurologic Neurologic: Denies headache(s), paresthesias or weakness Psychiatric Psychiatric: Reports anxiety; Denies suicidal ideation or suicidal thoughts EXAM Physical Exam Const Vital Signs: 09/23/23 20:12 Temperature 96.2 F L Temperature Source Temporal Pulse Rate 81 Respiratory Rate 18 Blood Pressure 132/79 H Blood Pressure Mean 96 Pulse Ox 100 Oxygen Delivery Method Room Air Positive well nourished and well developed Constitutional Narrative: Anxious and tearful at times however when discussion reassured and consolable. General Appearance ED: well developed and NAD HEENT Reports moist mucous membranes normocephalic and atraumatic Eyes PERRL, EOMs intact bilaterally and conjunctivae normal General Eye ED: Yes normal appearance of both eyes Neck no lymphadenopathy and supple General: Negative for tenderness Chest Wall Chest: Negative for tenderness Resp normal respiratory effort and normal air movement Effort and Inspection: symmetric chest movement; Negative for respiratory distress Cardio regular rate, regular rhythm and no murmurs Peripheral Pulses: pulses 2+ throughout GI normal to inspection, nondistended, normoactive bowel sounds and non-tender Palpation: Negative for guarding or rebound tenderness present Back/Spine no CVA tenderness and no thoracic nor lumbar tenderness Extremity normal to inspection General Extremety ED: Negative for edema or tenderness General Extremity: Negative for edema Neuro oriented x3 and no sensory deficits noted Sensorium / Orientation: awake and alert Psych Psych Narrative: No suicidal or homicidal ideations. Skin no rashes or lesions noted and no wounds MDM MDM MDM Narrative Medical decision making narrative: Interventions / MDM: Differential diagnosis: Anxiety, hyperlipidemia Diagnosis considered but do not suspect: No suicidal or homicidal ideations. My EKG interpretation: N/A Imaging independently reviewed and interpreted by myself: N/A External documents reviewed: N/A Test considered but not ordered:N/A ED course: I reviewed and discussed patient's lab values with her. She is more reassured. These are only slightly elevated LDL and cholesterol. Discussed her high HDL or good and can counter the LDLs. Elevated TSH however normal T3-T4 levels in the low normal range. Decision with her and her PCP was to start thyroid medications. This is new for her. She will continue this. She has no suicidal homicidal ideations. She states she does walk which will help with her lipids. She is changing her diet also. Discussed healthy choices. Reassured with continued outpatient therapy. I do not feel any workup is necessary at this time. Re-evaluation: stable Disposition discussed with patient/family/significant other: Patient and significant other Case discussed with consulting clinician: N/A This note was generated with [employer] dictation software. It may contain incorrect words, spelling, and punctuation that were not noted in checking the note before signing. Discharge Plan Triage Chief Complaint: Mental Health ED Provider: Cj Boykin Dx/Rx/DC Orders Clinical Impression: Anxiety, Hyperlipidemia Instructions: All About Cholesterol Control, Cholesterol Lifestyle Changes Prescriptions: No Action sertraline 50 mg tablet 50 mg PO DAILY Qty: 30 0RF cyclobenzaprine [cyclobenzaprine] 10 mg tablet 10 mg PO TID PRN (Reason: Muscle Spasm) Qty: 20 0RF sulfamethoxazole-trimethoprim [Bactrim DS] 800-160 mg tablet 1 tab PO BID Qty: 14 0RF sulfamethoxazole-trimethoprim [Bactrim DS] 800-160 mg tablet 1 tab PO BID Qty: 14 0RF Primary Care Provider: Meli Bernard Referrals: Meli Bernard, [Primary Care Provider] - 1-2 Weeks Activity Restrictions/Additional Instructions: Review of your labs your LDL is slightly elevated. Your HDL is elevated which is good. Total cholesterol is elevated. Make adjustments to your diet as you are doing. You do not need to stop eating. Your free thyroid levels are normal however on the slight low side. Your doctor decided with you to start medications. Continue this. Follow-up with your doctor as planned. Disposition Disposition: Home, Self Care
== END 2023-09-23 21:07 | disposition home or self-care (01) ==
LOC: ED 20:57
PROVIDERS: Emergency Provider Emergency Medicine; PCP Family Medicine; Visit Provider Emergency Medicine
DX: F41.9 Anxiety disorder, unspecified (principal); E78.5 Hyperlipidemia, unspecified; Z87.891 Personal history of nicotine dependence
CPT/HCPCS: 99282

== ENCOUNTER → 2023-10-18 | Outpatient (CLI) | payer MEDICAID, SELFPAY ==
[2023-10-18 13:10] LABS: T4 Free Direct 0.89 ng/dL (0.76-1.46); Thyroid Stim Hormone (TSH) 5.44 uIU/mL (0.358-3.74)
== END | disposition home or self-care (01) ==
LOC: MFPLAB 10:18
PROVIDERS: Family Medicine; Visit Provider Family Medicine
DX: E06.3 Autoimmune thyroiditis (principal)
CPT/HCPCS: 36415; 84439; 84443

== ENCOUNTER → 2023-11-14 | Outpatient (CLI) | payer MEDICAID, SELFPAY ==
--- NOTE | 2023-11-14 12:04 | US_ITS ---
EXAM: US SOFT TISSUES HEAD AND NECK, THYROID CLINICAL INDICATION: Hypothyroidism, unspecified TECHNIQUE: Greyscale and color doppler imaging was performed of the thyroid gland. COMPARISON: No relevant prior studies available. FINDINGS: LEFT THYROID LOBE: The left thyroid lobe measures 4.9 x 1.6 x 1.6 cm. The left thyroid lobe is diffusely heterogenous. Normal vascularity. No thyroid nodules are present. RIGHT THYROID LOBE: The right thyroid lobe measures 5.0 x 1.8 x 2.5 cm. The right thyroid lobe is diffusely heterogenous. Normal vascularity. No thyroid nodules are present. ISTHMUS: The thyroid isthmus measures 0.3 cm. No thyroid nodules are present. US/Thyroid IMPRESSION: Diffusely heterogenous and borderline enlarged thyroid gland without focal nodule consistent with a diffuse thyroid disease. Recommend endocrinology consultation if not already performed. Electronically Signed: Patrice Orozco DO at 21:45 EDT ,
== END | disposition home or self-care (01) ==
LOC: US 12:03
PROVIDERS: PCP Family Medicine; Referring Provider Family Medicine; Visit Provider Family Medicine
DX: F41.9 Anxiety disorder, unspecified (principal); E03.9 Hypothyroidism, unspecified
CPT/HCPCS: 76536

== ENCOUNTER → 2023-11-15 | Outpatient (CLI) | payer MEDICAID, SELFPAY ==
[2023-11-15 13:41] LABS: Thyroid Stim Hormone (TSH) 3.61 uIU/mL (0.358-3.74)
== END | disposition home or self-care (01) ==
LOC: MFPLAB 10:25
PROVIDERS: PCP Family Medicine; Visit Provider Family Medicine
DX: R79.89 Other specified abnormal findings of blood chemistry (principal)
CPT/HCPCS: 36415; 84443

== ENCOUNTER 2023-12-03 22:22 | Emergency (ER) | payer MEDICAID, SELFPAY ==
[2023-12-03 22:27] VITALS: BP 120/88; PULSE 88; RESP 25; TEMP 36.4; O2SAT 99; BMI 29.4
--- NOTE | 2023-12-03 22:39 | ED.RN ---
Pt walked up to this RN stated I need to be seen. 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 RN tried to give reassurance. Stated, I'm having a mental breakdown Pt refused RN offers for mental health resources, informed RN she has a psychiatrist. RN asking required triage questions, pt refusing to answer SI intent. I just want this to go away speaking about her illness, this RN clarified. Pt apologizing for being angry, triage pt as best to this RN ability.
--- NOTE | 2023-12-03 23:35 | EDS_ITS ---
HPI History of Present Illness Chief Complaint: Abn Labs Informant: patient and spouse/S.O. Narrative Narrative: Patient is a 53-year-old female with history of PTSD along with anxiety and depression. She states she was recently diagnosed with hypothyroidism/Hash imoto's thyroiditis and is on levothyroxine. She reports she has been on the Internet reading about this disease and she now has concerns that it is going to kill her. She states she is afraid to eat or drink anything as the Internet states that it could worsen her symptoms and she also is concerned that the medication she is taking are not appropriate or are not functioning properly and with this comes in for evaluation [facility] Medical History (Updated 12/03/23 @ 23:[address] Colin Zuniga, DO) Hypothyroid Anxiety and depression Sciatic leg pain Depression Anxiety Home Medications ?Medication ?Instructions ?Recorded ?Last Taken ?Type cyclobenzaprine 10 mg tablet 10 mg PO TID PRN Muscle Spasm #20 04/01/23 Unknown Rx TABLETS sertraline 50 mg tablet 50 mg PO DAILY #30 tabs 07/10/23 Unknown Rx cholecalciferol (vitamin D3) 25 25 mcg PO DAILY 12/03/23 Unknown History mcg (1,000 unit) capsule cyanocobalamin (vitamin B-12) 500 500 mcg PO DAILY 12/03/23 Unknown History mcg tablet (Vitamin B-12) levothyroxine 50 mcg tablet 50 mcg PO DAILY 12/03/23 Unknown History magnesium 200 mg tablet 200 mg PO DAILY 12/03/23 Unknown History rpotxgrx-qccx-tdat 8 mg-folic 400 1 tab PO DAILY 12/03/23 Unknown History mcg-K 50 mcg-lutein 300 mcg tablet (Centrum Silver Women) olanzapine 2.5 mg tablet 1.25 mg PO QHS 12/03/23 Unknown History omega 2-xgv-gqc-fish oil 300 1 cap PO DAILY 12/03/23 Unknown History mg-1,000 mg capsule (Fish Oil) Allergy/AdvReac Type Severity Reaction Status Date / Time No Known Allergies Allergy Verified 12/03/23 22:32 Surgical History (Updated 12/03/23 @ 22:52 by Fallon Gardner) H/O tooth extraction Social History Smoking Status: Former smoker ROS ROS ED Constitutional Constitutional ED: Denies chills or fever(s) Eyes Eyes: Denies change in vision ENT ENT ED: Denies sore throat Cardiovascular Cardiovascular: Denies chest pain, palpitations or racing heartbeat Respiratory/Chest Respiratory/Chest: Denies cough or dyspnea Gastrointestinal Gastrointestinal: Denies abdominal pain, diarrhea, nausea or vomiting Genitourinary Genitourinary ED: Denies dysuria Musculoskeletal Musculoskeletal: Denies myalgias Integumentary Denies rash Neurologic Neurologic: Denies headache(s) Psychiatric Psychiatric: Reports anxiety and depression; Denies suicidal ideation or suicidal thoughts Endocrine Endocrinology: Denies cold intolerance or heat intolerance Hematologic/Lymphatic Hematologic/Lymphatic: Denies easy bleeding or easy bruising EXAM Physical Exam Const Vital Signs: 12/03/23 22:27 12/03/23 22:53 Temperature 97.6 F L Temperature Source Temporal Pulse Rate 88 Respiratory Rate 25 H Respiratory Effort Normal Non-Labored Respiratory Pattern Normal Blood Pressure 120/88 H Blood Pressure Mean 98 Pulse Ox 99 Oxygen Delivery Method Room Air Positive well nourished and well developed General Appearance ED: well developed; Negative for pallor HEENT HEENT Narrative: Normocephalic atraumatic Eyes PERRL and EOMs intact bilaterally General Eye ED: Negative for scleral icterus Neck supple Resp normal respiratory effort and clear to auscultation bilaterally Cardio regular rate and regular rhythm Extremity normal to inspection Neuro oriented x3, CN's II-XII intact bilaterally and no sensory deficits noted Sensorium / Orientation: alert Motor Exam: strength 5/5 throughout Psych Psych Narrative: Patient is a tearful/nervous/anxious affect however no homicidal or suicidal ideations Skin no rashes or lesions noted General Skin Exam: Negative for jaundice or pallor MDM MDM MDM Narrative Medical decision making narrative: Patient arrived to ER with stable vitals and has a known history of hypothyroidism and is currently on levothyroxine. Her last evaluation shows her TSH value is normal. She presents with multiple issues mainly being that the hypothyroidism is adversely affecting her life as she has severe anxiety and stress over what the Internet states can happen from this illness as well as what she can and cannot do in life or eat/drink. As her exam does not indicate dehydration as there is low concern for infection as she does not show findings concerning for thyroid storm or myxedema coma I do not feel there is need for testing. Patient was reassured that based on her recent set of labs and her vitals and exam as she is on the proper medication and that by taking this she is preventing any unwanted side effects. She agrees to continue her medication as directed by her doctor but at this time with low concern for dehydration acute kidney injury infectious process or need for medication adjustment she is safe for discharge History & Record Review Discussion w/independent historian: Patient and Significant other Discharge Plan Triage Chief Complaint: Abn Labs ED Provider: Colin Zuniga Dx/Rx/DC Orders Clinical Impression: Anxiety and depression, Hypothyroidism Instructions: Common Thyroid Problems Prescriptions: No Action sertraline 50 mg tablet 50 mg PO DAILY Qty: 30 0RF cyclobenzaprine [cyclobenzaprine] 10 mg tablet 10 mg PO TID PRN (Reason: Muscle Spasm) Qty: 20 0RF olanzapine 2.5 mg tablet 1.25 mg PO QHS levothyroxine 50 mcg tablet 50 mcg PO DAILY omega 3-rag-pkn-fish oil [Fish Oil] 300-1,000 mg capsule 1 cap PO DAILY cholecalciferol (vitamin D3) 25 mcg (1,000 unit) capsule 25 mcg PO DAILY magnesium 200 mg tablet 200 mg PO DAILY Centrum Silver Women 8 mg iron-400 mcg-50 mcg tablet 1 tab PO DAILY cyanocobalamin (vitamin B-12) [Vitamin B-12] 500 mcg tablet 500 mcg PO DAILY Primary Care Provider: Eric Leal Referrals: Eric Leal MD [Primary Care Provider] - Print Language: Mozambican Disposition Disposition: Home, Self Care Discharge Date/Time: 12/03/23 23:40
== END 2023-12-03 23:40 | disposition home or self-care (01) ==
PROVIDERS: Emergency Provider Emergency Medicine; PCP Family Medicine; Visit Provider Emergency Medicine
DX: F41.8 Other specified anxiety disorders (principal); Z87.891 Personal history of nicotine dependence; E03.9 Hypothyroidism, unspecified; Z79.899 Other long term (current) drug therapy; F43.10 Post-traumatic stress disorder, unspecified
CPT/HCPCS: 99282

== ENCOUNTER 2023-12-12 14:07 | Outpatient (CLI) | payer MEDICAID, SELFPAY ==
[2023-12-15 15:09] LABS: ANTINUCLEAR ANTIBODIES DIRECT Negative (Negative); Anti-Histone Abs 0.8 Units (0.0-0.9); Dilute Prothrombin Time (dPT) 34.3 sec (0.0-47.6); Dilute Russell Viper Venom 36.6 sec (0.0-47.0); Interpretation Comment: (.); PTT-LA 42.9 sec (0.0-43.5); Smith Ab <0.2 AI (0.0-0.9); dPT Confirm Ratio 1.04 Ratio (0.00-1.34)
== END 2023-12-12 23:59 | disposition home or self-care (01) ==
LOC: MFPLAB 14:07
PROVIDERS: PCP Family Medicine; Visit Provider Family Medicine
DX: R21 Rash and other nonspecific skin eruption (principal)
CPT/HCPCS: 36415; 86038; 86235

== ENCOUNTER → 2024-01-13 | Outpatient (CLI) | payer MEDICAID, SELFPAY | END | disposition home or self-care (01) | PROVIDERS: PCP Family Medicine; Referring Provider Family Medicine; Visit Provider Family Medicine | DX: E03.9 Hypothyroidism, unspecified (principal) | CPT/HCPCS: 36415; 84443 ==

== ENCOUNTER → 2024-03-11 | Outpatient (CLI) | payer MEDICAID, SELFPAY ==
[2024-03-11 16:15] LABS: T4 Free Direct 0.99 ng/dL (0.76-1.46)
== END | disposition home or self-care (01) ==
LOC: MFPLAB 13:34
PROVIDERS: PCP Family Medicine; Visit Provider Family Medicine
DX: E03.9 Hypothyroidism, unspecified (principal)
CPT/HCPCS: 36415; 84439; 84443

== ENCOUNTER → 2024-05-20 | Outpatient (CLI) | payer MEDICAID, SELFPAY | END | disposition home or self-care (01) | LOC: MFPLAB 14:56 | PROVIDERS: PCP Family Medicine; Referring Provider Family Medicine; Visit Provider Family Medicine | DX: E03.9 Hypothyroidism, unspecified (principal) | CPT/HCPCS: 36415; 84443 ==

== ENCOUNTER 2024-07-22 14:15 | Emergency (ER) | payer MEDICAID, SELFPAY ==
[2024-07-22 14:16] VITALS: BP 126/75; PULSE 89; RESP 16; TEMP 36.8; O2SAT 99; BMI 14.6
--- NOTE | 2024-07-22 15:39 | EDS_ITS ---
HPI History of Present Illness Chief Complaint: Other, Pain/Inj PFSH PFSH Medical History (Updated 07/22/24 @ 15:36 by Alta Cotto) Chanda's disease Hemorrhoid Hypothyroid Anxiety and depression Sciatic leg pain Depression Anxiety Home Medications ?Medication ?Instructions ?Recorded ?Last Taken ?Type cyclobenzaprine 10 mg tablet 10 mg PO TID PRN Muscle S pasm #20 04/01/23 Unknown Rx TABLETS sertraline 50 mg tablet 50 mg PO DAILY #30 tabs 06/29 07/22 Unknown Rx cholecalciferol (vitamin D3) 25 25 mcg PO DAILY Unknown History mcg (1,000 unit) capsule cyanocobalamin (vitamin B-12) 500 500 mcg PO DAILY 12/19 Unknown History mcg tablet (Vitamin B-12) levothyroxine 50 mcg tablet 50 mcg PO DAILY 12/03/23 U nknown History magnesium 200 mg tablet 200 mg PO DAILY 12/03/23 Unk nown History carschht-houv-ycqv 8 mg-folic 400 1 tab PO DAILY 12/02 Unknown History mcg-K 50 mcg-lutein 300 mcg tablet (Centrum Silver Women) olanzapine 2.5 mg tablet 1.25 mg PO QHS 12/03/23 Unkn own History omega 9-gmb-vxr-fish oil 300 1 cap PO DAILY 12/03/23 U nknown History mg-1,000 mg capsule (Fish Oil) Allergy/AdvReac Type Severity Reaction Status Date / Time No Known Allergies Allergy Verified 07/22/24 14:19 Surgical History (Updated 12/03/23 @ 22:52 by Fallon Gardner) H/O tooth extraction Social History Smoking Status: Former smoker EXAM Physical Exam Const Vital Signs: 07/22/24 14:16 07/22/24 15:35 Temperature 98.2 F Temperature Source Oral Pulse Rate 89 Respiratory Rate 16 Respiratory Effort Normal Respiratory Pattern Normal Blood Pressure 126/75 H Blood Pressure Mean 92 Pulse Ox 99 Oxygen Delivery Method Room Air MDM MDM MDM Narrative Medical decision making narrative: HISTORY OF PRESENT ILLNESS: 54-year-old female presents with concern for hemorrhoid. REVIEW OF SYSTEMS: Pertinent positives: Hemorrhoid Pertinent negatives: [] PHYSICAL EXAM: Nursing triage notes reviewed, Vital signs reviewed Constitutional: please see mdm Rectal: (Performed stem lead former) Skin: No rash or lesions noted MEDICAL DECISION MAKING: Chief Complaint: Hemorrhoid External records reviewed: Reviewed PCP office visit from today. Reviewed her physicians physical exam which showed no anal fissures, lacerations, no rash noted on exam, no warts. Noted 0.8 cm lesion that is nonbloody that appear to be an internal prolapsed hemorrhoid. She was diagnosis renal cyst. She was advised to follow with general surgery. Referral was made to Dr. Almanza Factors affecting care: Hemorrhoid Consults: none [] [facility] Narrative: Patient was initially hemodynamically stable, afebrile and nontoxic-appearing. Exam I considered the following differential diagnosis: [] ALL IMAGES (IF OBTAINED) HAVE BEEN PERSONALLY REVIEWED AND INTERPRETED BY MYSELF. [] The patient and/or family, caregivers express understanding. The patient and/or family, caregivers agrees with the plan. Shared decision making: I will have a discussion with the patient and or visitors regarding risk/benefits of further testing or admission. They will be made aware of of the risk/benefits inherent in this decision they will be given the opportunity to voice understanding. Total critical care time today provided was at least 0 [] minutes. This excludes separately billable procedures. Critical care time (if documented) is secondary to the patient having high probability of clinically significant/life threatening deterioration in the patient's condition which required my urgent intervention. Impression: [] Dispo: [] This note was generated with [employer] dictation software. It may contain incorrect words, spelling, and punctuation that were not noted in review of the chart prior to signing. Discharge Plan Triage Chief Complaint: Other, Pain/Inj ED Provider: Tramaine Hernández Dx/Rx/DC Orders Prescriptions: No Action sertraline 50 mg tablet 50 mg PO DAILY Qty: 30 0RF cyclobenzaprine [cyclobenzaprine] 10 mg tablet 10 mg PO TID PRN (Reason: Muscle Spasm) Qty: 20 0RF olanzapine 2.5 mg tablet 1.25 mg PO QHS levothyroxine 50 mcg tablet 50 mcg PO DAILY omega 3-aie-xuy-fish oil [Fish Oil] 300-1,000 mg capsule 1 cap PO DAILY cholecalciferol (vitamin D3) 25 mcg (1,000 unit) capsule 25 mcg PO DAILY magnesium 200 mg tablet 200 mg PO DAILY Centrum Silver Women 8 mg iron-400 mcg-50 mcg tablet 1 tab PO DAILY cyanocobalamin (vitamin B-12) [Vitamin B-12] 500 mcg tablet 500 mcg PO DAILY Primary Care Provider: Eric Leal Referrals: Eric Leal MD [Primary Care Provider] - Print Language: Burmese
--- NOTE | 2024-07-22 15:39 | EX.ED.GENINJ ---
HPI History of Present Illness Chief Complaint: Other, Pain/Inj PFSH PFSH Medical History (Updated 07/22/24 @ 15:36 by Alta Cotto) Chanda's disease Hemorrhoid Hypothyroid Anxiety and depression Sciatic leg pain Depression Anxiety Home Medications ?Medication ?Instructions ?Recorded ?Last Taken ?Type cyclobenzaprine 10 mg tablet 10 mg PO TID PRN Muscle Spasm #20 04/01/23 Unknown Rx TABLETS sertraline 50 mg tablet 50 mg PO DAILY #30 tabs 07/10/23 Unknown Rx cholecalciferol (vitamin D3) 25 25 mcg PO DAILY 12/03/23 Unknown History mcg (1,000 unit) capsule cyanocobalamin (vitamin B-12) 500 500 mcg PO DAILY 12/03/23 Unknown History mcg tablet (Vitamin B-12) levothyroxine 50 mcg tablet 50 mcg PO DAILY 12/03/23 Unknown History magnesium 200 mg tablet 200 mg PO DAILY 12/03/23 Unknown History tvlghvua-augz-frlw 8 mg-folic 400 1 tab PO DAILY 12/03/23 Unknown History mcg-K 50 mcg-lutein 300 mcg tablet (Centrum Silver Women) olanzapine 2.5 mg tablet 1.25 mg PO QHS 12/03/23 Unknown History omega 4-qlt-yfk-fish oil 300 1 cap PO DAILY 12/03/23 Unknown History mg-1,000 mg capsule (Fish Oil) hydrocortisone 2.5 % topical cream 1 applic GA QHS PRN hemorrhoids 07/22/24 Unknown Rx with perineal applicator #30 grams (Anusol-HC) Allergy/AdvReac Type Severity Reaction Status Date / Time No Known Allergies Allergy Verified 07/22/24 14:19 Surgical History (Updated 12/03/23 @ 22:52 by Fallon Gardner) H/O tooth extraction Social History Smoking Status: Former smoker EXAM Physical Exam Const Vital Signs: 07/22/24 14:16 07/22/24 15:35 Temperature 98.2 F Temperature Source Oral Pulse Rate 89 Respiratory Rate 16 Respiratory Effort Normal Respiratory Pattern Normal Blood Pressure 126/75 H Blood Pressure Mean 92 Pulse Ox 99 Oxygen Delivery Method Room Air MDM MDM MDM Narrative Medical decision making narrative: HISTORY OF PRESENT ILLNESS: 54-year-old female presents with concern for hemorrhoid. She notes earlier today she had a bowel movement and had 1 spot of blood noted. This was concerning to her so she presented to ED for further evaluation. She denies lightheadedness, dizziness, fatigue, chest pain, shortness of breath or palpitations. She denies any heavy bleeding or blood filling the toilet. 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 Skin: No rash or lesions noted MEDICAL DECISION MAKING: Chief Complaint: Hemorrhoid External records reviewed: Reviewed PCP office visit from today. Reviewed her physicians physical exam which showed no anal fissures, lacerations, no rash noted on exam, no warts. Noted 0.8 cm lesion that is nonbloody that appear to be an internal prolapsed hemorrhoid. She was diagnosis renal cyst. She was advised to follow with general surgery. Referral was made to Dr. Almanza. Factors affecting care: Hemorrhoid Consults: none [facility] Narrative: Patient was initially hemodynamically stable, afebrile and nontoxic-appearing. Exam consistent with hemorrhoid. No other concerning findings. Offered blood work (CBC) given the patient's report of bleeding however patient refused stating she does not think was necessary. Will prescribe topical hemorrhoidal cream. The patient and/or family, caregivers express understanding. The patient and/or family, caregivers agrees with the plan. Shared decision making: I will have a discussion with the patient and or visitors regarding risk/benefits of further testing or admission. They will be made aware of of the risk/benefits inherent in this decision they will be given the opportunity to voice understanding. Total critical care time today provided was at least 0 minutes. This excludes separately billable procedures. Critical care time (if documented) is secondary to the patient having high probability of clinically significant/life threatening deterioration in the patient's condition which required my urgent intervention. Impression: 1. Hemorrhoid 2. Bright red blood per rectum Dispo: Discharge home This note was generated with [employer] dictation software. It may contain incorrect words, spelling, and punctuation that were not noted in review of the chart prior to signing. Discharge Plan Triage Chief Complaint: Other, Pain/Inj ED Provider: Tramaine Hernández Dx/Rx/DC Orders Instructions: ED Hemorrhoids Prescriptions: New hydrocortisone [Anusol-HC] 2.5 % cream with perineal applicator 1 applic GA QHS PRN (Reason: hemorrhoids) Qty: 30 0RF No Action sertraline 50 mg tablet 50 mg PO DAILY Qty: 30 0RF cyclobenzaprine [cyclobenzaprine] 10 mg tablet 10 mg PO TID PRN (Reason: Muscle Spasm) Qty: 20 0RF olanzapine 2.5 mg tablet 1.25 mg PO QHS levothyroxine 50 mcg tablet 50 mcg PO DAILY omega 8-rlf-kfv-fish oil [Fish Oil] 300-1,000 mg capsule 1 cap PO DAILY cholecalciferol (vitamin D3) 25 mcg (1,000 unit) capsule 25 mcg PO DAILY magnesium 200 mg tablet 200 mg PO DAILY Centrum Silver Women 8 mg iron-400 mcg-50 mcg tablet 1 tab PO DAILY cyanocobalamin (vitamin B-12) [Vitamin B-12] 500 mcg tablet 500 mcg PO DAILY Primary Care Provider: Eric Leal Referrals: Eric Leal MD [Primary Care Provider] - Idania Almanza MD [Med Staff - Active Staff] - Activity Restrictions/Additional Instructions: Thank you for trusting us with your care today! Please take Tylenol (2 pills, 650 mg), ibuprofen (2 pills, 400 mg) every 6 hours as needed for pain and fever control. Please use Anusol as prescribed. Please return to the emergency department if your symptoms change or worsen. Please follow with your primary care physician for further outpatient evaluation and management. Print Language: Belarusian Disposition Disposition: Home, Self Care
== END 2024-07-22 16:20 | disposition home or self-care (01) ==
PROVIDERS: Emergency Provider Emergency Medicine; PCP Family Medicine; Visit Provider Emergency Medicine
DX: K64.8 Other hemorrhoids (principal); Z87.891 Personal history of nicotine dependence
CPT/HCPCS: 99282

== ENCOUNTER → 2024-08-22 | Outpatient (CLI) | payer MEDICAID, SELFPAY ==
[2024-08-22 19:14] LABS: Thyroid Stim Hormone (TSH) 0.295 uIU/mL (0.300-4.200)
== END | disposition home or self-care (01) ==
LOC: MFPLAB 14:55
PROVIDERS: PCP Family Medicine; Referring Provider Family Medicine; Visit Provider Family Medicine
DX: E03.9 Hypothyroidism, unspecified (principal)
CPT/HCPCS: 36415; 84443

== ENCOUNTER → 2024-10-22 | Outpatient (CLI) | payer MEDICAID, SELFPAY | END | disposition home or self-care (01) | LOC: MFPLAB 10:18 | PROVIDERS: PCP Family Medicine; Referring Provider Family Medicine; Visit Provider Family Medicine | DX: E03.9 Hypothyroidism, unspecified (principal) | CPT/HCPCS: 36415; 84443 ==

== ENCOUNTER → 2025-01-14 | Outpatient (CLI) | payer MEDICAID, SELFPAY | END | disposition home or self-care (01) | LOC: MFPLAB 14:38 | PROVIDERS: PCP Family Medicine; Referring Provider Family Medicine; Visit Provider Family Medicine | DX: E03.9 Hypothyroidism, unspecified (principal) | CPT/HCPCS: 36415; 84443 ==

== ENCOUNTER 2025-02-14 16:11 | Emergency (ER) | payer MEDICAID, SELFPAY ==
[2025-02-14 16:11] VITALS: BP 115/76; PULSE 74; RESP 18; TEMP 36.7; O2SAT 100; BMI 30.5
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
--- OUTSIDE RECORDS SUMMARY | 2025-02-14 18:01 | XMS RPT_ITS | CCD ---
Author Organization 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 Tasha Marks Primary Care Provider [phone] Dr. Rolan Rea Attending Provider AURA TIJERINA, DR CORDOVA Attending Unavailable ROMAR DO, DR CORDOVA Primary Care Unavailable ROMAR DO, DR CORDOVA Attending Unavailable ROMAR DO, DR CORDOVA Primary Care Unavailable ROMAR DO, DR CORDOVA Attending Unavailable ROMAR DO, DR CORDOVA Primary Care Unavailable ROMAR DO, DR CORDOVA Attending Unavailable ROMAR DO, DR CORDOVA Primary Care Unavailable ROMAR DO, DR CORDOVA Attending Unavailable ROMAR DO, DR CORDOVA Primary Care Unavailable DO Meli Bernard Primary Care Provider [phone] DO Meli Bernard Referring Provider Fareed PLATA, SHERLYN Buckley Attending Provider Eric Leal MD Primary Care Provider [phone] Eric Leal MD Attending Provider Eric Leal MD Referring Provider Dr. Tramaine Hernández DO Attending Provider Dr. Tramaine Hernández DO Emergency Provider Dr. Idania Almanza MD Attending Provider [phone] Eric Leal MD Primary Care Provider Eric Leal MD Referring Provider Eric Leal MD Attending Provider Eric Leal MD Primary Care Provider Eric Leal MD Attending Provider Eric Leal MD Referring Provider Mel, Chalon Attending Unavailable Mel, Chalon Referring Unavailable Mel, Chalon Primary Care Unavailable Mel, Chalon Attending Unavailable Mel, Chalon Primary Care Unavailable Robotham, Idania Attending Unavailable Mel, Chalon Referring Unavailable Mel, Chalon Primary Care Unavailable Mel, Chalon Referring Unavailable Mel, Chalon Primary Care Unavailable Robotham, Idania Attending Unavailable Mel, Chalon Attending Unavailable Mel, Chalon Referring Unavailable Mel, Chalon Primary Care Unavailable Mel, Chalon Attending Unavailable Mel, Chalon Referring Unavailable Mel, Chalon Primary Care Unavailable EdgarTramaine Attending Unavailable Mel, Chalon Primary Care Unavailable Mel, Chalon Attending Unavailable Mel, Chalon Referring Unavailable Mel, Chalon Primary Care Unavailable Medications Current Medications Medication Drug Class(es) Dates Sig (Normalized) Sig (Original) Centrum Chewables Adults (3 sources) Start: 09-09-2020 Centrum Chewables Adults Dose = 1 tab(s), Chewed, qDay, 0 Refill(s) Start Date: 09/09/20 Status: Ordered cholecalciferol 0.025 mg oral capsule (3 sources) Vitamin D Start: 12-03-2023 take 1 capsule by mouth once daily Cholecalciferol (Vitamin D3) 25 mcg (1,000 unit) capsule Active 25 ug PO DAILY December 03, 2023 12:00am cyclobenzaprine hydrochloride 10 mg oral tablet (7 sources) Muscle Relaxant Start: 04-01-2023 take 1 tablet by mouth three times daily as needed for muscle spasms Cyclobenzaprine 10 mg tablet Active 10 mg PO THREE TIMES A DAY as needed for Muscle Spasm April 01, 2023 12:00am Buchtel 6-Gvf-Fqx-Fish Oil (3 sources) Start: 12-03-2023 Buchtel 0-Mwz-Pvi-Fish Oil (Fish Oil) 300-1,000 mg capsule Active 1 NMA PO DAILY December 03, 2023 12:00am hydrocortisone 25 mg/ml topical cream (3 sources) Corticosteroid Start: 07-22-2024 Hydrocortisone (Anusol-Hc) 2.5 % cream with perineal applicator Active 1 NMA RC AT BEDTIME as needed for hemorrhoids July 22, 2024 1:00am hydrOXYzine hydrochloride 50 mg oral tablet (1 source) Antihistamine Start: 03-29-2023 End: 04-12-2023 hydrOXYzine hydrochloride 50 mg oral tablet Dose : 50 mg = 1 tab(s), Oral, QID, PRN as needed for anxiety, Do not drive, operate heavy machinery, or drink alcohol while on this med. Okay to try half a tab when first starting med. Do not take any other anti-histamines while on this med., # 28 tab(s), 1 Refill(s), Pharmacy: [id number], 168, cm, 03/29/23 10:42:00 EDT, Height, kg, 03/29/23 10:42:00 EDT, Dosing Weight Start Date: 03/29/23 Stop Date: 04/12/23 Status: Ordered levothyroxine sodium 0.05 mg oral tablet (3 sources) l-Thyroxine Start: 12-03-2023 take 1 tablet by mouth once daily Levothyroxine 50 mcg tablet Active 50 ug PO DAILY December 03, 2023 12:00am Magnesium (3 sources) Start: 12-03-2023 take 1 tablet by mouth once daily Magnesium 200 mg tablet Active 200 mg PO DAILY December 03, 2023 12:00am methocarbamol 750 mg oral tablet (2 sources) Muscle Relaxant Start: 06-10-2022 End: 06-17-2022 methocarbamol 750 mg oral tablet Dose : 1,500 mg = 2 tab(s), Oral, TID, PRN Muscle spasm, Do not drive, operate heavy machinery, or drink alcohol while on this med., # 42 tab(s), 0 Refill(s), Pharmacy: [id number], 168, cm, 06/10/22 14:42:00 EST, Height Start Date: 06/10/22 Stop Date: 06/17/22 Status: Ordered Odjaittu-Rsz-Vncg-Fa -Vit K-Lut (Centrum Silver Women) 8 mg iron-400 mcg-50 mcg tablet (3 sources) Start: 12-03-2023 take 1 tablet by mouth once daily Pyxftmfx-Shr-Cebe-F a-Vit K-Lut (Centrum Silver Women) 8 mg iron-400 mcg-50 mcg tablet Active 1 {tbl} PO DAILY December 03, 2023 12:00am OLANZapine 2.5 mg oral tablet (3 sources) Atypical Antipsychotic Start: 12-03-2023 take 1.25 mg by mouth at bedtime Olanzapine 2.5 mg tablet Active 1.25 mg PO AT BEDTIME December 03, 2023 12:00am Phenylephrine Hcl (Preparation H (Pe)) 0.25 % suppository (3 sources) Start: 08-14-2024 Phenylephrine Hcl (Preparation H (Pe)) 0.25 % suppository Active 1 NMA RC TWICE A DAY August 14, 2024 12:00am sertraline 50 mg oral tablet (5 sources) Serotonin Reuptake Inhibitor Start: 07-10-2023 take 1 tablet by mouth once daily Sertraline 50 mg tablet Active 50 mg PO DAILY 30 July 10, 2023 1:00am vitamin B12 (3 sources) Vitamin B12 Start: 12-03-2023 take 1 tablet by mouth once daily Cyanocobalamin (Vitamin B-12) (Vitamin B-12) 500 mcg tablet Active 500 ug PO DAILY December 03, 2023 12:00am Completed/Discontinued Medications Medication Drug Class(es) Dates Sig (Normalized) Sig (Original) sulfamethoxazole 800 mg / trimethoprim 160 mg oral tablet (10 sources) Dihydrofolate Reductase Inhibitor Antibacterial, Sulfonamide Antimicrobial Start: 04-23-2023 End: 12-03-2023 Sulfamethoxazole- Trimethoprim (Bactrim Ds) 800-160 mg tablet Discontinued 1 {tbl} PO TWICE A DAY 14 April 23, 2023 1:00am December 03, 2023 10:48pm Problems Active Problems Problem Classification Problem Date Documented Date Episodic/Chronic Anxiety disorders (15 sources) Anxiety; Translations: [Generalized anxiety disorder] 06-10-2022 Chronic Deficiency and other anemia (3 sources) Anemia 04-17-2020 Episodic Disorders of lipid metabolism (3 sources) Hyperlipidemia; Translations: [Hyperlipidemia, unspecified] 10-01-2023 Chronic Disorders of teeth and jaw (20 sources) Carious exposure of pulp ; Translations: [Dental caries, unspecified] 11-21-2019 Episodic Genitourinary symptoms and ill-defined conditions (5 sources) Dysuria; Translations: [Dysuria] 05-01-2023 Episodic Hemorrhoids (7 sources) Hemorrhoids; Translations: [Unspecified hemorrhoids] 08-02-2024 Episodic Comment on above: Internal Immunizations and screening for infectious disease (1 source) Rheumatoid factor positive 06-16-2022 Episodic Mood disorders (6 sources) Depression; Translations: [Recurrent major depression] 04-17-2020 Chronic Nutritional deficiencies (3 sources) Vitamin D deficiency 04-17-2020 Chronic Other acquired deformities (1 source) Stenosis of intervertebral foramina 06-16-2022 Episodic Other and unspecified benign neoplasm (1 source) Melanocytic nevus of skin 09-05-2022 Episodic Other connective tissue disease (1 source) Muscle spasm of cervical muscle of neck 03-29-2023 Episodic Other connective tissue disease (1 source) Plantar fasciitis 09-02-2022 Episodic Other connective tissue disease (7 sources) Pain in right lower limb; Translations: [Pain in right leg] 04-01-2023 Episodic Other nervous system disorders (3 sources) Left cervical root neuropathy 06-10-2022 Chronic Other nervous system disorders (3 sources) Numbness of upper limb 04-20-2020 Episodic Other non-traumatic joint disorders (3 sources) Multiple joint pain 06-10-2022 Episodic Other non-traumatic joint disorders (1 source) Joint pain; Translations: [Pain in unspecified joint] Episodic Other screening for suspected conditions (not mental disorders or infectious disease) (8 sources) Patient encounter status; Translations: [Encounter for screening, unspecified] 06-12-2022 Episodic Residual codes; unclassified (3 sources) Hallucinations 09-14-2020 Episodic Rheumatoid arthritis and related disease (1 source) Arthropathy of lumbar facet joint 06-16-2022 Chronic Screening and history of mental health and substance abuse codes (1 source) Tobacco use and exposure - finding 03-29-2023 Chronic Spondylosis; intervertebral disc disorders; other back problems (2 sources) Degeneration of lumbar intervertebral disc; Translations: [Lumbar spondylosis] 06-16-2022 Chronic Spondylosis; intervertebral disc disorders; other back problems (20 sources) Sciatica; Translations: [Sciatica, unspecified side] 09-14-2020 Episodic Sprains and strains (8 sources) Muscle strain; Translations: [Strain of muscle, fascia and tendon of pelvis, initial encounter] 06-12-2022 Episodic Suicide and intentional self-inflicted injury (3 sources) H/O: attempted suicide 04-20-2020 Episodic Superficial injury; contusion (9 sources) Foreign body of foot; Translations: [Superficial foreign body, right foot, initial encounter] 03-16-2022 Episodic Thyroid disorders (4 sources) Hypothyroidism; Translations: [Hypothyroidism, unspecified] Onset: 01-20-2025 12-11-2023 Chronic Unclassified (9 sources) No history of clinical finding in subject; Translations: [No significant past medical history] 11-20-2019 Unclassified (3 sources) Bipolar (qualifier value) 04-17-2020 Urinary tract infections (5 sources) Cystitis; Translations: [Cystitis, unspecified without hematuria] 05-01-2023 Episodic Past or Other Problems Problem Classification Problem Date Documented Da te Episodic/Chronic Gastrointestinal hemorrhage (1 source) Hemorrhage of anus and rectum; Translations: [Hemorrhage of anus and rectum] Onset: 08-03-2024 Episodic Results Test Name Value Interpretation Reference Range Facility TSH DL <= 0.005 mIU/L QnOrde red By: Eric Leal on 01-14-2025 TSH Qn 3.260 uIU/mL 0.300-4.200 [facility] Thyroid Stim Hormone (TSH)on 01-14-2025 TSH 3.260 uIU/mL Normal 0.300-4.200 [facility] Comment on above: Order Comment: Order Date: 03/11/24 Order Info: 3016-3 - TSH Performed By: #### L [id number] #### [facility] [address] [place] [address], [id number] TSH DL <= 0.005 mIU/L QnOrde red By: Eric Leal on 10-22-2024 TSH Qn 1.790 uIU/mL 0.300-4.200 [facility] Thyroid Stim Hormone (TSH)on 10-22-2024 TSH 1.790 uIU/mL Normal 0.300-4.200 [facility] Comment on above: Order Comment: Order Date: 09/06/24 Order Info: 3016-3 - TSH Performed By: #### L [id number] #### [facility] [address] [place], [place], [id number] TSH DL <= 0.005 mIU/L QnOrde red By: Eric Leal on 08-22-2024 Thyroid Stimulating Hormone (TSH) 0.295 uIU/mL Low 0.300-4.200 [facility] TSH Qn 0.295 uIU/mL Low 0.300-4.200 [facility] Thyroid Stim Hormone (TSH)on 08-22-2024 TSH 0.295 uIU/mL Low 0.300-4.200 [facility] Comment on above: Order Comment: Order Date: 05/24/24 Order Info: 3016-3 - TSH Performed By: #### L [id number] #### [facility] [address] [place], [address] Surgery Visit Reporton 08-14 Surgery Visit Report [facility] [address] [place], [place] [address] OFFICE VISIT Date of Service: 08/14/24 MR#: [id number] Acct: [id number] Name: REJI JOHNSON Rep #: [id number] : 1970 Provider: Dr. Idania haji MD Age/Sex: 54/F Location: [facility] Status: Signed Intake Vital Signs 07/31/24 14:04 Height 5 ft 8 in Weight: 196 lb 4 oz BMI 29.8 BP 115/74 Blood Pressure Location Rt brachial Position Sitting Respiration 18 Pulse 81 Pulse Source Monitor Temp 97.6 F L Temp Source Temporal Pulse Oximetry (%) 100 Oxygen Delivery Method room air Intake Visit Reasons: MED CHECK Chief Complaint: med check for hemorrhoid Is patient in pain?: No Allergies No Known Allergies Allergy (Verified 08/14/24 13:48) Medications ???Medication ???Instructions ???Recorded ???Confirmed ???Type cyclobenzaprine 10 mg tablet 10 mg PO TID PRN Muscle Spasm #20 04/01/23 08/14/24 Rx TABLETS sertraline 50 mg tablet 50 mg PO DAILY #30 tabs 07/10/23 0 08/14/24 Rx cholecalciferol (vitamin D3) 25 25 mcg PO DAILY 12/03/23 08/14/24 History mcg (1,000 unit) capsule cyanocobalamin (vitamin B-12) 500 500 mcg PO DAILY 12/03/23 5 History mcg tablet (Vitamin B-12) levothyroxine 50 mcg tablet 50 mcg PO DAILY 12/03/23 08/14/24 History magnesium 200 mg tablet 200 mg PO DAILY 12/03/23 08/14/24 History lveckycf-yusu-gfdp 8 mg-folic 400 1 tab PO DAILY 12/03/23 08/14/24 History mcg-K 50 mcg-lutein 300 mcg tablet (Centrum Silver Women) olanzapine 2.5 mg tablet 1.25 mg PO QHS 12/03/23 08/14/24 H istory omega 7-zue-gue-fish oil 300 1 cap PO DAILY 12/03/23 08/14/24 H istory mg-1,000 mg capsule (Fish Oil) hydrocortisone 2.5 % topical cream 1 applic DC QHS PRN hemorrhoids 07/22/24 08/14/24 Rx with perineal applicator #30 grams (Anusol-HC) phenylephrine HCl 0.25 % rectal 1 supp DC BID 08/14/24 08/14/24 Hi story suppository (Preparation H (pe)) PFSH Medical History Chanda's disease Hemorrhoid Hypothyroid Anxiety and depression Sciatic leg pain Depression Anxiety Surgical History H/O tooth extraction Social History (Updated 07/31/24 @ 14:04 by Celia Patel LPN) Smoking Status: Former smoker alcohol intake: never substance use type: does not use HPI HPI HPI: 54-year-old female presents for follow-up due to internal hemorrhoids. Patient states she did use the hydrocortisone/lidocaine suppositories twice daily for about 5 days and then daily for couple days after that. Patient states that yesterday she did have to do laundry which requires a bit of lifting and walking uphill because she does have to go to the laundromat. Patient currently denies any pain but states she does get occasional burning. ROS General General: No weight change, appetite, fatigue, colon cancer, breast cancer or weakness HEENT HEENT: No difficulty swallowing, eye injury, eye surgery, swollen glands or hoarseness Endo Endocrine: Yes thyroid disease; No diabetes mellitus, thyroid cancer, Hair loss, heat intolerance or cold intolerance Skin Skin: No rash or changing moles Musc Musculoskeletal: Yes back problems; No arthritis, rheumatoid arthritis, gout or joint pain Cardio Cardiovascular: No murmur, pacemaker, heart disease, atrial fibrillation, high blood pressure, heart attack, heart stent, palpitations, shortness of breath with exertion or chest pain Psych Psychiatric: Yes depression and anxiety; No hearing voices Resp Respiratory: No shortness of breath, No sleep apnea, No cough, No COPD, No asthma, No emphysema and No wheezing Gastro Gastrointestinal: No abdominal pain, No nausea or vomiting, No diarrhea, No constipation, No blood in stool, Yes acid reflux, Yes hemorrhoids, No ulcers, No gallbladder problem and No black,tarry stools [place] Hematologic: No blood thinners, No blood disorders, No bleeding, No anemia and No blood clots Neuro Neurologic: No numbness, No tingling and No weakness Exam Const General: cooperative, healthy appearing and comfortable Resp Effort Inspection: normal respiratory effort GI Other: Rectal inspection patient's previous thrombosed internal hemorrhoid healing well, NICHOLAS not done Assessment and Plan Assessment and Plan (1) Hemorrhoid: Status: Acute Comment: Internal Plan To discussed with patient that if this does become a problem again she can use the suppositories as well as the refills she has not had to use him for 2 weeks straight twice daily if she feels good after 1 week that is okay as well. She can also continue to use sitz bath's. Did again reassure patient that (more content not included)... Normal [facility] Surgery Visit Reporton 07-31 Surgery Visit Report [facility] [address] [place] [address] OFFICE VISIT Date of Service: 07/31/24 MR#: [id number] Acct: [id number] Name: REJI JOHNSON Rep #: [id number] : 1970 Provider: Dr. Idania haji MD Age/Sex: 54/F Location: [facility] Status: Signed Intake Vital Signs 12/03/23 22:27 07/22/24 14:16 07/31/24 14:04 Height 5 ft 8 in 5 ft 8 in 5 ft 8 in Weight: 196 lb 4 oz BMI 29.8 BP 115/74 Blood Pressure Location Rt brachial Position Sitting Respiration 18 Pulse 81 Pulse Source Monitor Temp 97.6 F L Temp Source Temporal Pulse Oximetry (%) 100 Oxygen Delivery Method room air Intake Visit Reasons: RECTAL CYST Chief Complaint: hemorrhoid Accompanied by: Is patient in pain?: No Allergies No Known Allergies Allergy (Verified 07/22/24 14:19) Medications ???Medication ???Instructions ???Recorded ???Confirmed ???Type cyclobenzaprine 10 mg tablet 10 mg PO TID PRN Muscle Spasm #20 04/01/23 07/31/24 Rx TABLETS sertraline 50 mg tablet 50 mg PO DAILY #30 tabs 07/10/23 0 07/31/24 Rx cholecalciferol (vitamin D3) 25 25 mcg PO DAILY 12/03/23 07/31/24 History mcg (1,000 unit) capsule cyanocobalamin (vitamin B-12) 500 500 mcg PO DAILY 12/03/23 5 History mcg tablet (Vitamin B-12) levothyroxine 50 mcg tablet 50 mcg PO DAILY 12/03/23 07/31/24 History magnesium 200 mg tablet 200 mg PO DAILY 12/03/23 07/31/24 History viuytadg-anoz-yzrg 8 mg-folic 400 1 tab PO DAILY 12/03/23 07/31/24 History mcg-K 50 mcg-lutein 300 mcg tablet (Centrum Silver Women) olanzapine 2.5 mg tablet 1.25 mg PO QHS 12/03/23 07/31/24 H istory omega 0-qjn-gsk-fish oil 300 1 cap PO DAILY 12/03/23 07/31/24 H istory mg-1,000 mg capsule (Fish Oil) hydrocortisone 2.5 % topical cream 1 applic DC QHS PRN hemorrhoids 07/22/24 07/31/24 Rx with perineal applicator #30 grams (Anusol-HC) [facility] Medical History (Updated 08/02/24 @ 12:[address] Idania Almanza MD) Chanda's disease Hemorrhoid Hypothyroid Anxiety and depression Sciatic leg pain Depression Anxiety Surgical History H/O tooth extraction Social History (Updated 07/31/24 @ 14:04 by Celia Patel LPN) Smoking Status: Former smoker alcohol intake: never substance use type: does not use HPI HPI HPI: 54-year-old female presents with her due to hemorrhoids/small amount of blood with bowel movement/wiping. Patient does have a lot of of anxiety dealing with her health and health care. Patient states about 2 weeks ago she was lifting some furniture and she noticed a lump in her rectum patient saw her PCP and was all seen in the ER was told this was a hemorrhoid. Patient does have some itching and burning associated with this as well. Patient has never had colonoscopy. Patient did the Cologuard however it did come back to her that she still has to redo it but was told to wait due to the issues with the hemorrhoid currently as it would come back positive. Patient states she does have a bowel movement daily and she is also currently been doing sitz bath's. Patient is not interested in her having a colonoscopy. Patient did get some proctozone cream from the ER. ROS General General: No weight change, appetite, fatigue, colon cancer, breast cancer or weakness HEENT HEENT: No difficulty swallowing, eye injury, eye surgery, swollen glands or hoarseness Endo Endocrine: Yes thyroid disease; No diabetes mellitus, thyroid cancer, Hair loss, heat intolerance or cold intolerance Skin Skin: No rash or changing moles Musc Musculoskeletal: Yes back problems; No arthritis, rheumatoid arthritis, gout or joint pain Cardio Cardiovascular: No murmur, pacemaker, heart disease, atrial fibrillation, high blood pressure, heart attack, heart stent, palpitations, shortness of breat with exertion or chest pain Psych Psychiatric: Yes depression and anxiety; No hearing voices Resp Respiratory: No shortness of breath, No sleep apnea, No cough, No COPD, No asthma, No emphysema and No wheezing Gastro Gastrointestinal: No abdominal pain, No nausea or vomiting, No diarrhea, No constipation, No blood in stool, Yes acid reflux, Yes hemorrhoids, No ulcers, No gallbladder problem and No black,tarry stools [place] Hematologic: No blood thinners, No blood disorders, No bleeding, No anemia and No blood clots Neuro Neurologic: No numbness, No tingling and No weakness Exam Const General: cooperative, healthy appearing, comfortable and no acute distress HENMT Head: normocephalic and atraumatic Neck Neck: supple Resp Effort Inspection: normal respiratory effort Cardio Rate: regular rate GI Inspection: n (more content not included)... Normal [facility] Emergency Department Summary on 07-22-2024 Emergency Department Summary [facility] Medical Records Department [address] [place] [address] Emergency Department Summary 07/22/24 MR#: [id number] Acct: [id number] Name: REJI JOHNSON Rep #: [id number] : 1970 54 From: Tramaine Hernández DO PCP: Dr. Eric Leal MD Status:REG ER Location: ED HPI History of Present Illness Chief Complaint: Other, Pain/Inj PFSH PFSH Medical History (Updated 07/22/24 @ 15:36 by Alta Cotto) Chanda's disease Hemorrhoid Hypothyroid Anxiety and depression Sciatic leg pain Depression Anxiety Home Medications ???Medication ???Instructions ???Recorded ???Last Taken ???Type cyclobenzaprine 10 mg tablet 10 mg PO TID PRN Muscle Spasm #20 04/01/23 Unknown Rx TABLETS sertraline 50 mg tablet 50 mg PO DAILY #30 tabs 07/10/23 U nknown Rx cholecalciferol (vitamin D3) 25 25 mcg PO DAILY 12/03/23 Unknown H istory mcg (1,000 unit) capsule cyanocobalamin (vitamin B-12) 500 500 mcg PO DAILY 12/03/23 Unknown History mcg tablet (Vitamin B-12) levothyroxine 50 mcg tablet 50 mcg PO DAILY 12/03/23 Unknown H istory magnesium 200 mg tablet 200 mg PO DAILY 12/03/23 Unknown H istory xgbgvzss-pnxo-dlfc 8 mg-folic 400 1 tab PO DAILY 12/03/23 Unknown H istory mcg-K 50 mcg-lutein 300 mcg tablet (Centrum Silver Women) olanzapine 2.5 mg tablet 1.25 mg PO QHS 12/03/23 Unknown Hi story omega 6-tkl-byo-fish oil 300 1 cap PO DAILY 12/03/23 Unknown Hi story mg-1,000 mg capsule (Fish Oil) hydrocortisone 2.5 % topical cream 1 applic DC QHS PRN hemorrhoids 07/22/24 Unknown Rx with perineal applicator #30 grams (Anusol-HC) Allergy/AdvReac Type Severity Reaction Status Date / Time No Known Allergies Allergy Verified 07/22/24 14:19 Surgical History (Updated 12/03/23 @ 22:52 by Fallon Gardner) H/O tooth extraction Social History Smoking Status: Former smoker EXAM Physical Exam Const Vital Signs: 07/22/24 14:16 07/22/24 15:35 Temperature 98.2 F Temperature Source Oral Pulse Rate 89 Respiratory Rate 16 Respiratory Effort Normal Respiratory Pattern Normal Blood Pressure 126/75 H Blood Pressure Mean 92 Pulse Ox 99 Oxygen Delivery Method Room Air MDM MDM MDM Narrative Medical decision making narrative: HISTORY OF PRESENT ILLNESS: 54-year-old female presents with concern for hemorrhoid. She notes earlier today she had a bowel movement and had 1 spot of blood noted. This was concerning to her so she presented to ED for further evaluation. She denies lightheadedness, dizziness, fatigue, chest pain, shortness of breath or palpitations. She denies any heavy bleeding or blood filling the toilet. REVIEW OF SYSTEMS: Pertinent positives: Hemorrhoid Pertinent negatives: Lightheadedness, fatigue, as per HPI PHYSICAL EXAM: Nursing triage notes reviewed, Vital signs reviewed Constitutional: please see mdm Rectal: (Performed system controller Alba COLE) no obvious fissures, no rectal prolapse, noted small nonthrombosed nonbleeding hemorrhoid at the 3 o'clock position. Skin: No rash or lesions noted MEDICAL DECISION MAKING: Chief Complaint: Hemorrhoid External records reviewed: Reviewed PCP office visit from today. Reviewed her physicians physical exam which showed no anal fissures, lacerations, no rash noted on exam, no warts. Noted 0.8 cm lesion that is nonbloody that appear to be an internal prolapsed hemorrhoid. She was diagnosis renal cyst. She was advised to follow with general surgery. Referral was made to Dr. Almanza. Factors affecting care: Hemorrhoid Consults: none MDM Narrative: Patient was initially hemodynamically stable, afebrile and nontoxic-appearing. Exam consistent with hemorrhoid. No other concerning findings. Offered blood work (CBC) given the patient's report of bleeding however patient refused stating she does not think was necessary. Will prescribe topical hemorrhoidal cream. The patient and/or family, caregivers express understanding. The patient and/or family, caregivers agrees with the plan. Shared decision making: I will have a discussion with the patient and or visitors regarding risk/benefits of further testing or admission. They will be made aware of of the risk/benefits inherent in this decision they will be given the opportunity to voice understanding. Total critical care time today provided was at least 0 minutes. This excludes separately billable procedures. Critical care time (if documented) is secondary to the patient having high probability of clinically significant/life threatening deterioration in the patient's condition which required my urgent intervention. Impression: 1. Hemorrhoid 2. Bright red blood per rectum Dispo: Di (more content not included)... Normal [facility] TSH QnOrdered By: Eric coe on 05-20-2024 Thyroid Stimulating Hormone (TSH) 1.710 uIU/mL 0.358-3.740 [facility] Thyroid Stim Hormone (TSH)on 05-20-2024 TSH 1.710 uIU/mL Normal 0.358-3.740 [facility] Comment on above: Order Comment: Order Date: 04/12/24 Order Info: 3016-3 - TSH Performed By: #### L [id number] #### [facility] [address] [place], [place], [id number] T4 Free Directon 03-11-2024 T4 FREE DIRECT 0.99 ng/dL Normal 0.76-1.46 [facility] Comment on above: Order Comment: Order Date: 03/08/24 Order Info: 3016-3 - TSH Order Date: 01/23/24 Order Info: 3024-7 - T4F Performed By: #### L [id number] #### [facility] [address] [place], [place], [address] Thyroid Stim Hormone (TSH)on 03-11-2024 TSH 4.150 uIU/mL High 0.358-3.740 [facility] Comment on above: Order Comment: Order Date: 03/08/24 Order Info: 3016-3 - TSH Order Date: 01/23/24 Order Info: 3024-7 - T4F Performed By: #### L [id number] #### [facility] [place], [address] No Panel InformationOrdered By: Meli Bernard on 09-14-2023 Free Triiodothyronine (T3) pg/dL 2.4 pg/mL 2.18-3.98 [facility] Thyroglobulin Antibody < 1.0 IU/mL 0.0-0.9 [facility] Comment on above: Thyroglobulin Antibo dy measured by WorldsMethodologyIt should be noted that the presence of thyroglobulinantibodies may not be pathogenic nor diagnostic, especiallyat very low levels. The assay edging supervisor has found thatfour percent of individuals without evidence of thyroiddisease or autoimmunity will have positive TgAb levels upto 4 IU/mL.Performed at: [facility] [address] [id number] Director: Clay Rg MD, Phone: [phone] at: [facility] [address] [id number] Director: Adrián Veliz PhD, Phone: [phone] Serum or plasma thyroid stim ulating hormone (TSH) measurement (units/volume)Ordered By: Meli Bernard on 09-14-2023 TSH Qn 10.40 uIU/mL 0.358-3.74 [facility] Serum or plasma thyroperoxid ase antibody assay (units/volume)Ordered By: Meli Bernard on 09-14-2023 TPO Ab Qn 373 [IU]/mL 0-34 [facility] Thin prep Papanicolaou smear with manual screeningOrdered By: Meli Bernard on 09-14-2023 Thin prep Papanicolaou smear with manual screening 0.77 ng/dL 0.76-1.46 [facility] Thyroid stimulating immunogl obulins detectionOrdered By: Meli Bernard on 09-14-2023 Thyroid stimulating immunoglobulins Ql (S) <0.10 IU/L 0.00-0.55 [facility] Absolute lymphocyte countOrd ered By: Meli Bernard on 09-11-2023 Lymphocytes Auto (Unsp spec) [#/Vol] 1.28 10*3/uL 0.83-4.51 [facility] Automated lymphocyte count a s percentage of total leukocytesOrdered By: Meli Bernard on 09-11-2023 Lymphocytes/100 WBC Auto (Unsp spec) 17.3 % 19-41 [facility] Basophil percentageOrdered B y: Meli Bernard on 09-11-2023 Basophils/100 WBC (Bld) 0.7 % 0-1 [facility] Bilirubin [Mass/Vol] 0.60 mg/dL 0.20-1.00 [facility] Comment on above: For patients on eltr ombopag therapy, use of Dimension [place] TBIL is not recommended. Chloride [Moles/Vol] 108 mmol/L 98-107 [facility] Eosinophils/100 WBC (Bld) 0.8 % 0-5 [facility] Glucose [Mass/Vol] 140 mg/dL 74-106 [facility] Comment on above: Fasting Glucose resu lt greater than or equal to 126 mg/dL suggests DIABETES MELLITUS per A.D.A. criteria. Hemoglobin (Bld) [Mass/Vol] 13.9 g/dL 12.0-15.0 [facility] Monocytes/100 WBC (Bld) 6.4 % 0-10 [facility] Neutrophils (Bld) [#/Vol] 5.5 10*3/uL 2.0-7.7 [facility] Neutrophils/100 WBC (Bld) 74.5 % 47-70 [facility] Potassium [Moles/Vol] 4.1 mmol/L 3.5-5.1 [facility] Protein [Mass/Vol] 7.2 g/dL 6.4-8.2 [facility] Sodium [Moles/Vol] 139 mmol/L 136-145 [facility] WBC (Bld) [#/Vol] 7.4 10*3/uL 4.4-11.0 [facility] Cholesterol [Mass/Vol] 262 mg/dL <200 [facility] Comment on above: <200 mg/dL Desirable 200-240 mg/dL Borderline >240 mg/dL High Risk Triglyceride [Mass/Vol] 56 mg/dL <199 [facility] Comment on above: The drugs N-Acetylcy steine and Metamizole may falsely depress this assay.Serum Triglycerides Reference Interval Normal <150 mg/dL Borderline high 150 - 199 mg/dL High 200 - 499 mg/dL Very High > or = 500 mg/dL Determination of erythrocyte mean corpuscular volume (MCV)Ordered By: Meli Bernard on 09-11-2023 MCV (RBC) [Entitic vol] 102.7 fL 81-99 [facility] Erythrocyte distribution wid th ratioOrdered By: Meli Bernard on 09-11-2023 Erythrocyte distribution width (RBC) [Ratio] 13.3 % 11.6-14.6 [facility] Erythrocyte distribution wid th standard deviationOrdered By: Meli Bernard on 09-11-2023 Erythrocyte distribution width (RBC) [Entitic vol] 50.9 fL 35.1-43.9 [facility] Hematocrit Auto (Bld) [Volum e fraction]Ordered By: Meli Bernard on 09-11-2023 Hematocrit (Bld) [Volume fraction] 41.2 % 37-47 [facility] Immature granulocytes/100 WB C Auto (Bld)Ordered By: Meli Bernard on 09-11-2023 Immature granulocytes/100 WBC (Bld) 0.300 % 0.0-0.9 [facility] Comment on above: IG% - Immature Granu locytes (promyelocytes, myelocytes and metamyelocytes) > 1% indicates that a LEFT SHIFT is Present. Laboratory - Chemistry and C hemistry - challengeOrdered By: Meli Bernard on 09-11-2023 Albumin/Globulin [Mass ratio] 0.9 {ratio} 0.9-2.4 [facility] ALP [Catalytic activity/Vol] 125 U/L 45-117 [facility] ALT [Catalytic activity/Vol] 55 U/L 13-56 [facility] CO2 [Moles/Vol] 25.0 mmol/L 21.0-32.0 [facility] Globulin (S) [Mass/Vol] 3.7 g/dL 2.2-4.2 [facility] Urea nitrogen/Creatinine [Mass ratio] 25.2 mg/mg 10-20 [facility] Cholesterol in HDL [Mass/Vol] 99 mg/dL >40 [facility] Comment on above: The drugs N-Acetylcy steine and Metamizole may falsely depress this assay. Reference Range HDL <40 mg/dL Low HDL Cholesterol HDL >or= 60 mg/dL High HDL Cholesterol Cholesterol in LDL [Mass/Vol] 152 mg/dL 0-130 [facility] - Hematology and Cell countsOrdered By: Meli Bernard on 09-11-2023 MCH (RBC) [Entitic mass] 34.7 pg 27.0-32.0 [facility] MCHC (RBC) [Mass/Vol] 33.7 g/dL 32-36 [facility] Nucleated RBC/100 WBC (Bld) [Ratio] 0 % 0-5 [facility] Platelet mean volume (Bld) [Entitic vol] 10.5 fL 6.2-12.0 [facility] Platelets (Bld) [#/Vol] 201 10*3/uL 150-450 [facility] No Panel InformationOrdered By: Meli Bernard on 09-11-2023 Estimated GFR (MDRD) Amer 78 mL/min >60 [facility] Comment on above: GFR Calc Estimated GFR (MDRD) Non-Af Amer 65 mL/min >60 [facility] Comment on above: Non- GFR Calc VLDL Cholesterol 11 mg/dL 5-40 [facility] RBC Auto (Bld) [#/Vol]Ordere d By: Meli Bernard on 09-11-2023 RBC (Bld) [#/Vol] 4.01 10*6/uL 4.2-5.4 [facility] Serum or plasma calcium fanta urement (mass/volume)Ordered By: Meli Bernard on 09-11-2023 Calcium [Mass/Vol] 9.9 mg/dL 8.5-10.1 [facility] Serum or plasma creatinine m easurement (mass/volume)Ordered By: Meli Bernard on 09-11-2023 Creatinine [Mass/Vol] 0.95 mg/dL 0.55-1.02 [facility] Comment on above: The validity of the calculated GFR & GFRAA in patients over 70 years has not been determined. Clinical correlation is essential. Serum or plasma thyroid stim ulating hormone (TSH) measurement (units/volume)Ordered By: Meli Bernard on 09-11-2023 TSH Qn 9.66 uIU/mL 0.358-3.74 [facility] Serum or plasma urea nitroge n measurement (mass/volume)Ordered By: Meli Bernard on 09-11-2023 Urea nitrogen [Mass/Vol] 24 mg/dL 7-18 [facility] Thin prep Papanicolaou smear with manual screeningOrdered By: Meli Bernard on 09-11-2023 Thin prep Papanicolaou smear with manual screening 3.5 g/dL 3.2-5.0 [facility] Thin prep Papanicolaou smear with manual screening 40 U/L 15-37 [facility] Thin prep Papanicolaou smear with manual screening 6 5- [facility] Whole blood hemoglobin A1c/t otal hemoglobin ratio (mass fraction)Ordered By: Meli Bernard on 09-11-2023 HbA1c (Bld) [Mass fraction] 5.3 % 3.8-5.6 [facility] Comment on above: Normal < 5.7 % Predi abetic 5.7 - 6.4 % Diabetic >or= 6.5 % Please note range changes. XR CHEST 2 VIEWSon 3 XR CHEST 2 VIEWS ORIGINAL EXAMINATION: TWO XRAY VIEWS OF THE CHEST03/29/2023 11:59 am XR Chest, two views COMPARISON: None HISTORY: ORDERING SYSTEM PROVIDED HISTORY: Reason for Exam: wheeze in smoker, FINDINGS: The lungs show no suspicious nodule, infiltrate, consolidation or mass. Heart size is normal and mediastinal contours are within normal limits for age and projection. No pneumothorax, pleural fluid, or vascular congestion is seen. The bones show no acute process. Other findings include: Lungs are hyperexpanded on the lateral view also with some flattening of diaphragm. IMPRESSION: No acute cardio pulmonary process. COPD. . Interpreted by: Sergio Gillespie MD Preliminary Report By: Sergio Gillespie MD Electronically signed By Sergio Gillespie MD Dictated Date: 04/02/2023 11:23:56 AM Prelim Date: 04/02/2023 11:24:24 AM Sign Date: 04/02/2023 11:24:24 AM Ordering Provider: TASHA MARKS [facility] ([place]) RFon 06-16-2022 Rheumatoid Factor 9.0 High <=6.0 [facility] ([place]) Comment on above: Result Comment: RF I gM Antibody by Enzyme Immunoassay: Negative < or = 6 Positive > 6 A positive result indicates the presence of RF antibodies and suggests the possibility of rheumatoid arthritis. A negative result indicates no RF IgM antibody or levels below the negative cut-off of the assay. Results of this assay should be used in conjunction with clinical findings and other serological tests. These results were obtained with the Lumiy QUANTA Lite RF IgM ETHAN. RF IgM values obtained with different manufacturers' assay methods may not be used interchangeably. The magnitude of the reported IgM levels cannot be correlated to an endpoint titer. Performed By: #### C MP, ANEU, CBC, GFR, CRP, ADIFF #### [place] [address] [place], [place] [address] #### RF, ARCHANA #### [address] [address] ANAon 06-14-2022 Nuclear Ab IF (S) [Titer] 40 {titer} Normal Neg 40 [facility] ([place]) Comment on above: Result Comment: ARCHANA Screen and Titer methodology is an immunofluorescent technique utilizing Hep2 Substrate. Performed By: #### C MP, ANEU, CBC, GFR, CRP, ADIFF #### [address] [address] #### RF, ARCHANA #### [address] [address] XR SPINE CERVICAL W/ OBLIQUE S 5 VIEWSon 06-14-2022 XR SPINE CERVICAL W/ OBLIQUES 5 VIEWS ORIGINAL EXAMINATION: FIVE XRAY VIEWS OF THE CERVICAL SPINE06/11/2022 12:54 pm COMPARISON: None. HISTORY: ORDERING SYSTEM PROVIDED HISTORY: Reason for Exam: left radiating arm pain, suspect radiculopathy, no known injury FINDINGS: Vertebral body heights are well maintained. There is disc height loss at the level of C4-C5 and C5-C6. No prevertebral soft tissue swelling. There is multilevel uncovertebral, facet hypertrophy, and osteophytosis. Straightening of the normal cervical lordosis which may be positional. There is bilateral foraminal stenosis at C4-5 and C5-6 that is greater on the right side. The patient is edentulous. The odontoid is intact. No acute fractures or aggressive osseous lesions. The partially visualized thoracic structures are unremarkable. IMPRESSION: Bilateral right greater than left neural foraminal encroachment at the levels of C4-C5 and C5-C6. Mild osteoarthropathy. I have personally reviewed the images of this examination and agree with the resident's findings and interpretations. Interpreted by: Sergio Gillespie MD Preliminary Report By: Shree Aguilera Electronically signed By Sergio Gillespie MD Dictated Date: 06/14/2022 3:07:38 PM Prelim Date: 06/14/2022 3:35:02 PM Sign Date: 06/14/2022 3:35:02 PM Ordering Provider: TASHA Avila [facility] ([place]) .Auto Diffon 06-13-2022 Basophil, Absolute 0.0 10 3/mcL Normal 0.0-0.2 [facility] ([place]) Comment on above: Performed By: #### C MP, ANEU, CBC, GFR, CRP, ADIFF #### [place] [address] #### RF, ARCHANA #### [address] [address] Basophils/100 WBC (Bld) 0.9 % Normal 0.0-2.5 [facility] ([place]) Comment on above: Performed By: #### C MP, ANEU, CBC, GFR, CRP, ADIFF #### [address] [address] #### RF, ARCHANA #### [address] [address] Eosinophil, Absolute 0.1 10 3/mcL Normal 0.0-0.4 [facility] ([place]) Comment on above: Performed By: #### C MP, ANEU, CBC, GFR, CRP, ADIFF #### [place] [address] #### RF, ARCHANA #### [address] [address] Eosinophils/100 WBC (Bld) 2.0 % Normal 0.0-7.0 [facility] ([place]) Comment on above: Performed By: #### C MP, ANEU, CBC, GFR, CRP, ADIFF #### [address] [address] #### RF, ARCHANA #### [address] [address] Lymphocyte, Absolute 1.4 10 3/mcL Normal 0.8-3.9 [facility] ([place]) Comment on above: Performed By: #### C MP, ANEU, CBC, GFR, CRP, ADIFF #### [place] [address] #### RF, ARCHANA #### [address] [address] Lymphocytes/100 WBC (Bld) 29.6 % Normal 10.0-50.0 [facility] ([place]) Comment on above: Performed By: #### C MP, ANEU, CBC, GFR, CRP, ADIFF #### [place] [address] #### RF, ARCHANA #### [address] [address] Monocyte, Absolute 0.4 10 3/mcL Normal 0.2-1.0 [facility] ([place]) Comment on above: Performed By: #### C MP, ANEU, CBC, GFR, CRP, ADIFF #### [address] [address] #### RF, ARCHANA #### [address] [address] Monocytes/100 WBC (Bld) 7.5 % Normal 1.7-13.0 [facility] ([place]) Comment on above: Performed By: #### C MP, ANEU, CBC, GFR, CRP, ADIFF #### [address] [address] #### RF, ARCHANA #### [address] [address] Neutrophils/100 WBC (Bld) 60.0 % Normal 37.0-80.0 [facility] ([place]) Comment on above: Performed By: #### C MP, ANEU, CBC, GFR, CRP, ADIFF #### [address] [address] #### RF, ARCHANA #### [address] [address] .GFRon 06-13-2022 GFR 88 ml/min/1.73sqm Normal [facility] ([place]) Comment on above: Result Comment: GFR Population mean for , Non- Americans Ages 20-29 = 116 mL/min/1.73 sq.m. Ages 30-39 = 107 mL/min/1.73 sq.m. Ages 40-49 = 99 mL/min/1.73 sq.m. Ages 50-59 = 93 mL/min/1.73 sq.m. Ages 60-69 = 85 mL/min/1.73 sq.m. Ages 70+ = 75 mL/min/1.73 sq.m. Chronic Kidney Disease: Less than 60 mL/min/1.73 square meters End Stage Renal Disease: Less than 15 mL/min/1.73 square meters Performed By: #### C MP, ANEU, CBC, GFR, CRP, ADIFF #### [address] [address] #### RF, ARCHANA #### [place] [address] GFR Non- 73 ml/min/1.73sqm Normal [facility] ([place]) Comment on above: Result Comment: GFR Population mean for , Non- Americans Ages 20-29 = 116 mL/min/1.73 sq.m. Ages 30-39 = 107 mL/min/1.73 sq.m. Ages 40-49 = 99 mL/min/1.73 sq.m. Ages 50-59 = 93 mL/min/1.73 sq.m. Ages 60-69 = 85 mL/min/1.73 sq.m. Ages 70+ = 75 mL/min/1.73 sq.m. Chronic Kidney Disease: Less than 60 mL/min/1.73 square meters End Stage Renal Disease: Less than 15 mL/min/1.73 square meters Performed By: #### C MP, ANEU, CBC, GFR, CRP, ADIFF #### [place] [address] #### RF, ARCHANA #### [place] [address] .NEUABSon 06-13-2022 Neutrophil, Absolute 2.9 10 3/mcL Normal 2.9-6.2 [facility] ([place]) Comment on above: Performed By: #### C MP, ANEU, CBC, GFR, CRP, ADIFF #### [place] [address] #### RF, ARCHANA #### [place] [address] CBCon 06-13-2022 Erythrocyte distribution width (RBC) [Ratio] 13.8 % Normal 11.5-14.5 [facility] ([place]) Comment on above: Performed By: #### C MP, ANEU, CBC, GFR, CRP, ADIFF #### [place] [address] #### RF, ARCHANA #### [place] [address] Hematocrit (Bld) [Volume fraction] 40.0 % Normal 37.0-47.0 [facility] ([place]) Comment on above: Performed By: #### C MP, ANEU, CBC, GFR, CRP, ADIFF #### [place] [address] #### RF, ARCHANA #### [place] [address] Hgb 13.4 G/dL Normal 12.0-16.0 [facility] ([place]) Comment on above: Performed By: #### C MP, ANEU, CBC, GFR, CRP, ADIFF #### [place] [address] #### RF, ARCHANA #### [place] [address] MCH (RBC) [Entitic mass] 29.1 pg Normal 27.0-31.2 [facility] ([place] Comment on above: Performed By: #### C MP, ANEU, CBC, GFR, CRP, ADIFF #### [place] [address] #### RF, ARCHANA #### [place] [address] MCHC 33.4 G/dL Normal 33.0-37.0 [facility] ([place] Comment on above: Performed By: #### C MP, ANEU, CBC, GFR, CRP, ADIFF #### [place] [address] #### RF, ARCHANA #### [place] [address] MCV (RBC) [Entitic vol] 87.1 fL Normal 80.0-94.0 [facility] ([place] Comment on above: Performed By: #### C MP, ANEU, CBC, GFR, CRP, ADIFF #### [place] [address] #### RF, ARCHANA #### [place] [address] Platelet 223 10 3/mcL Normal 130-400 [facility] ([place] Comment on above: Performed By: #### C MP, ANEU, CBC, GFR, CRP, ADIFF #### [place] [address] #### RF, ARCHANA #### [place] [address] Platelet mean volume (Bld) [Entitic vol] 8.6 fL Normal 7.4-10.4 [facility] ([place] Comment on above: Performed By: #### C MP, ANEU, CBC, GFR, CRP, ADIFF #### [place] [address] #### RF, ARCHANA #### [place] [address] RBC 4.59 10 6/mcL Normal 4.20-5.40 [facility] ([place] Comment on above: Performed By: #### C MP, ANEU, CBC, GFR, CRP, ADIFF #### [place] [address] #### RF, ARCHANA #### [address] [address] WBC 4.8 10 3/mcL Normal 4.6-10.8 [facility] ([place] Comment on above: Performed By: #### C MP, ANEU, CBC, GFR, CRP, ADIFF #### [place] [address] #### RF, ARCHANA #### [place] [address] CMPon 06-13-2022 Albumin Level 4.6 G/dL Normal 3.5-5.0 [facility] ([place]) Comment on above: Performed By: #### C MP, ANEU, CBC, GFR, CRP, ADIFF #### [place] [address] #### RF, ARCHANA #### [place] [address] Albumin/Globulin [Mass ratio] 1.4 {ratio} Normal 1.1-2.5 [facility] ([place] Comment on above: Performed By: #### C MP, ANEU, CBC, GFR, CRP, ADIFF #### [place] [address] #### RF, ARCHANA #### [place] [address] ALP [Catalytic activity/Vol] 62 U/L Normal 40-135 [facility] ([place] Comment on above: Performed By: #### C MP, ANEU, CBC, GFR, CRP, ADIFF #### [place] [address] #### RF, ARCHANA #### [place] [id number] ALT [Catalytic activity/Vol] 20 U/L Normal 14-59 [facility] ([place] Comment on above: Performed By: #### C MP, ANEU, CBC, GFR, CRP, ADIFF #### [place] [id number] #### RF, ARCHANA #### [address] [address] AST [Catalytic activity/Vol] 19 U/L Normal 10-40 [facility] ([place] Comment on above: Performed By: #### C MP, ANEU, CBC, GFR, CRP, ADIFF #### [place] [address] #### RF, ARCHANA #### [place] [address] Bili Total 0.5 mg/dL Normal 0.2-1.0 [facility] ([place]) Comment on above: Result Comment: Use of this assay is not recommended for patients undergoing treatment with eltrombopag due to the potential for falsely elevated results. Performed By: #### C MP, ANEU, CBC, GFR, CRP, ADIFF #### [place] [address] #### RF, ARCHANA #### [place] [address] BUN/Creatinine Ratio 17 ratio Normal 7-27 [facility] ([place]) Comment on above: Performed By: #### C MP, ANEU, CBC, GFR, CRP, ADIFF #### [place] [address] #### RF, ARCHANA #### [place] [address] Calcium [Mass/Vol] 9.4 mg/dL Normal 8.4-10.2 [facility] ([place]) Comment on above: Performed By: #### C MP, ANEU, CBC, GFR, CRP, ADIFF #### [place] [address] #### RF, ARCHANA #### [place] [address] Chloride [Moles/Vol] 101 mmol/L Normal 98-107 [facility] ([place]) Comment on above: Performed By: #### C MP, ANEU, CBC, GFR, CRP, ADIFF #### [place] [address] #### RF, ARCHANA #### [address] [address] CO2 [Moles/Vol] 29 mmol/L Normal 22-29 [facility] ([place]) Comment on above: Performed By: #### C MP, ANEU, CBC, GFR, CRP, ADIFF #### [place] [address] #### RF, ARCHANA #### [place] [address] Creatinine [Mass/Vol] 0.82 mg/dL Normal 0.55-1.02 [facility] ([place]) Comment on above: Performed By: #### C MP, ANEU, CBC, GFR, CRP, ADIFF #### [place] [address] #### RF, ARCHANA #### [place] [address] Electrolyte Balance 11.0 mEq/L Normal 4.0-15.0 [facility] ([place]) Comment on above: Performed By: #### C MP, ANEU, CBC, GFR, CRP, ADIFF #### [place] [address] #### RF, ARCHANA #### [place] [address] Globulin 3.3 G/dL Normal [facility] ([place]) Comment on above: Performed By: #### C MP, ANEU, CBC, GFR, CRP, ADIFF #### [place] [address] #### RF, ARCHANA #### [place] [id number] Glucose [Mass/Vol] 102 mg/dL Normal 70-105 [facility] ([place]) Comment on above: Performed By: #### C MP, ANEU, CBC, GFR, CRP, ADIFF #### [place] [address] #### RF, ARCHANA #### [facility] [address] [place], [place] [address] Potassium [Moles/Vol] 4.2 mmol/L Normal 3.5-5.1 [facility] ([place]) Comment on above: Performed By: #### C MP, ANEU, CBC, GFR, CRP, ADIFF #### [address] [address] #### RF, ARCHANA #### [address] [address] Sodium [Moles/Vol] 141 mmol/L Normal 136-145 [facility] ([place]) Comment on above: Performed By: #### C MP, ANEU, CBC, GFR, CRP, ADIFF #### [address] [address] #### RF, ARCHANA #### [place] [address] Total Protein 7.9 G/dL Normal 6.4-8.2 [facility] ([place]) Comment on above: Performed By: #### C MP, ANEU, CBC, GFR, CRP, ADIFF #### [address] [address] #### RF, ARCHANA #### [place] [address] Urea nitrogen [Mass/Vol] 14 mg/dL Normal 7-18 [facility] ([place]) Comment on above: Performed By: #### C MP, ANEU, CBC, GFR, CRP, ADIFF #### [place] [address] #### RF, ARCHANA #### [address] [address] CRPon 06-13-2022 CRP [Mass/Vol] mg/L Normal 0.0-0.9 [facility] ([place]) Comment on above: Performed By: #### C MP, ANEU, CBC, GFR, CRP, ADIFF #### [address] [address] #### RF, ARCHANA #### [place] [address] LABORATORYOrdered By: SYSTEM SYSTEM on 06-13-2022 Albumin BCP dye [Mass/Vol] 4.6 G/dL Invalid Interpretation Code 3.5 - 5.0 G/dL AO ADM SS Albumin/Globulin [Mass ratio] 1.4 {ratio} Invalid Interpretation Code 1.1 - 2.5 ratio AO ADM SS ALP [Catalytic activity/Vol] 62 U/L Invalid Interpretation Code 40 - 135 U/L AO ADM SS ALT With P-5'-P [Catalytic activity/Vol] 20 U/L Invalid Interpretation Code 14 - 59 U/L AO ADM SS AST With P-5'-P [Catalytic activity/Vol] 19 U/L Invalid Interpretation Code 10 - 40 U/L AO ADM SS Bilirubin [Mass/Vol] 0.5 mg/dL Invalid Interpretation Code 0.2 - 1.0 mg/dL AO ADM SS Calcium [Mass/Vol] 9.4 mg/dL Invalid Interpretation Code 8.4 - 10.2 mg/dL AO ADM SS Chloride [Moles/Vol] 101 mmol/L Invalid Interpretation Code 98 - 107 mmol/L AO ADM SS CO2 [Moles/Vol] 29 mmol/L Invalid Interpretation Code 22 - 29 mmol/L AO ADM SS Creatinine [Mass/Vol] 0.82 mg/dL Invalid Interpretation Code 0.55 - 1.02 mg/dL AO ADM SS Electrolyte Balance 11.0 mEq/L Invalid Interpretation Code 4.0 - 15.0 mEq/L AO ADM SS GFR 88 ml/min/1.73sqm Invalid Interpretation Code AO Chemistry S GFR Non- 73 ml/min/1.73sqm Invalid Interpretation Code AO Chemistry S Globulin 3.3 G/dL Invalid Interpretation Code AO ADM SS Glucose [Mass/Vol] 102 mg/dL Invalid Interpretation Code 70 - 105 mg/dL AO ADM SS Potassium [Moles/Vol] 4.2 mmol/L Invalid Interpretation Code 3.5 - 5.1 mmol/L AO ADM SS Protein [Mass/Vol] 7.9 G/dL Invalid Interpretation Code 6.4 - 8.2 G/dL AO ADM SS Sodium [Moles/Vol] 141 mmol/L Invalid Interpretation Code 136 - 145 mmol/L AO ADM SS Urea nitrogen [Mass/Vol] 14 mg/dL Invalid Interpretation Code 7 - 18 mg/dL AO ADM SS Urea nitrogen/Creatinine [Mass ratio] 17 ratio Invalid Interpretation Code 7 - 27 ratio AO ADM SS LABORATORYOrdered By: Humaira Lees on 06-13-2022 Basophil, Absolute 0.0 103/mcL Invalid Interpretation Code 0.0 - 0.2 10^3/mcL AO Workflow SS Basophils/100 WBC (Bld) 0.9 % Invalid Interpretation Code 0.0 - 2.5 % AO Workflow SS Eosinophil, Absolute 0.1 103/mcL Invalid Interpretation Code 0.0 - 0.4 10^3/mcL AO Workflow SS Eosinophils/100 WBC (Bld) 2.0 % Invalid Interpretation Code 0.0 - 7.0 % AO Workflow SS Erythrocyte distribution width (RBC) [Ratio] 13.8 % Invalid Interpretation Code 11.5 - 14.5 % AO Workflow SS Hematocrit (Bld) [Volume fraction] 40.0 % Invalid Interpretation Code 37.0 - 47.0 % AO Workflow SS Hemoglobin (Bld) [Mass/Vol] 13.4 G/dL Invalid Interpretation Code 12.0 - 16.0 G/dL AO Workflow SS Lymphocyte, Absolute 1.4 103/mcL Invalid Interpretation Code 0.8 - 3.9 10^3/mcL AO Workflow SS Lymphocytes/100 WBC (Bld) 29.6 % Invalid Interpretation Code 10.0 - 50.0 % AO Workflow SS MCH (RBC) [Entitic mass] 29.1 pg Invalid Interpretation Code 27.0 - 31.2 pg AO Workflow SS MCHC 33.4 G/dL Invalid Interpretation Code 33.0 - 37.0 G/dL AO Workflow SS MCV (RBC) [Entitic vol] 87.1 fL Invalid Interpretation Code 80.0 - 94.0 fL AO Workflow SS Monocyte, Absolute 0.4 103/mcL Invalid Interpretation Code 0.2 - 1.0 10^3/mcL AO Workflow SS Monocytes/100 WBC (Bld) 7.5 % Invalid Interpretation Code 1.7 - 13.0 % AO Workflow SS Neutrophil, Absolute 2.9 103/mcL Invalid Interpretation Code 2.9 - 6.2 10^3/mcL AO Workflow SS Neutrophils/100 WBC (Bld) 60.0 % Invalid Interpretation Code 37.0 - 80.0 % AO Workflow SS Platelet mean volume (Bld) [Entitic vol] 8.6 fL Invalid Interpretation Code 7.4 - 10.4 fL AO Workflow SS Platelets (Bld) [#/Vol] 223 103/mcL Invalid Interpretation Code 130 - 400 10^3/mcL AO Workflow SS RBC (Bld) [#/Vol] 4.59 106/mcL Invalid Interpretation Code 4.20 - 5.40 10^6/mcL AO Workflow SS WBC (Bld) [#/Vol] 4.8 103/mcL Invalid Interpretation Code 4.6 - 10.8 10^3/mcL AO Workflow SS LABORATORYOrdered By: Pattie Peralta on 06-13-2022 CRP [Mass/Vol] mg/dL Invalid Interpretation Code 0.0 - 0.9 mg/dL AO Chemistry S XR SPINE LUMBAR W/OBLIQUES 4 VIEWSon 06-13-2022 XR SPINE LUMBAR W/OBLIQUES 4 VIEWS ORIGINAL EXAMINATION: AP lateral obliques 5 XRAY VIEWS OF THE LUMBAR SPINE06/11/2022 12:53 pm COMPARISON: None HISTORY: ORDERING SYSTEM PROVIDED HISTORY: Reason for Exam: left sciatica, chronic FINDINGS: There are 5 lumbar-type vertebral bodies that show normal height and AP alignment. There is mild L2-3 and moderate L5-S1 disc space narrowing. Moderate to severe L4-5 and L5-S1 facet arthropathy. No spondylolysis on the oblique views. Symmetric SI joints. No sacral lesion. IMPRESSION: Mild to moderate degenerative changes. No acute findings. Interpreted by: Sergio Gillespie MD Preliminary Report By: Sergio Gillespie MD Electronically signed By Sergio Gillespie MD Dictated Date: 06/13/2022 12:35:32 AM Prelim Date: 06/13/2022 12:36:28 AM Sign Date: 06/13/2022 12:36:28 AM Ordering Provider: TASHA MARKS [facility] ([place]) Vital Signs Date Time Vital Sign Value Performing Clinician Jacquesi debbie 07-31-2024 14:04-0500 Body height 172.72 cm Eric Leal MD Work Phone: [facility] 07-31-2024 14:04-0500 Body mass index (BMI) [Ratio] 29.8 kg/m2 Eric Leal MD Work Phone: [facility] 07-31-2024 14:04-0500 Body temperature 97.6 [degF] Eric Leal MD Work Phone: [facility] 07-31-2024 14:04-0500 Body weight 89.01 kg Eric Leal MD Work Phone: [facility] 07-31-2024 14:04-0500 Diastolic blood pressure 74 mm[Hg] Eric Leal MD Work Phone: [facility] 07-31-2024 14:04-0500 Heart rate 81 /min Eric Leal MD Work Phone: [facility] 07-31-2024 14:04-0500 Respiratory rate 18 /min Eric Leal MD Work Phone: [facility] 07-31-2024 14:04-0500 SaO2% (BldA) [Mass fraction] 100 % Eric Leal MD Work Phone: [facility] 07-31-2024 14:04-0500 Systolic blood pressure 115 mm[Hg] Eric Leal MD Work Phone: [facility] 07-22-2024 14:16-0500 Body mass index (BMI) [Ratio] 14.6 kg/m2 Eric Leal MD Work Phone: [facility] 07-22-2024 14:16-0500 Body temperature 98.2 [degF] Eric Leal MD Work Phone: [facility] 07-22-2024 14:16-0500 Body weight 43.71 kg Eric Leal MD Work Phone: [facility] 07-22-2024 14:16-0500 Diastolic blood pressure 75 mm[Hg] Eric Leal MD Work Phone: [facility] 07-22-2024 14:16-0500 Heart rate 89 /min Eric Leal MD Work Phone: [facility] 07-22-2024 14:16-0500 Respiratory rate 16 /min Eric Leal MD Work Phone: [facility] 07-22-2024 14:16-0500 SaO2% (BldA) [Mass fraction] 99 % Eric Leal MD Work Phone: [facility] 07-22-2024 14:16-0500 Systolic blood pressure 126 mm[Hg] Eric Leal MD Work Phone: [facility] 07-10-2023 13:06-0500 Body height 172.72 cm DO Meli Wymannger Work Phone: [facility] 07-10-2023 13:06-0500 Body mass index (BMI) [Ratio] 29.6 kg/m2 DO Meli Joana Work Phone: [facility] 07-10-2023 13:06-0500 Body temperature 99.7 [degF] DO Meli Joana Work Phone: [facility] 07-10-2023 13:06-0500 Body weight 88.45 kg DO Meli Joana Work Phone: [facility] 07-10-2023 13:06-0500 Diastolic blood pressure 82 mm[Hg] DO Meli Joana Work Phone: [facility] 07-10-2023 13:06-0500 Heart rate 67 /min DO Meli Joana Work Phone: [facility] 07-10-2023 13:06-0500 Respiratory rate 14 /min DO Melihaylee Wymannger Work Phone: [facility] 07-10-2023 13:06-0500 SaO2% (BldA) [Mass fraction] 97 % DO Meli Joana Work Phone: [facility] 07-10-2023 13:06-0500 Systolic blood pressure 138 mm[Hg] DO Meli Joana Work Phone: [facility] 04-01-2023 17:52-0400 Body height 172.72 cm [facility] 04-01-2023 17:52-0400 Body mass index (BMI) [Ratio] 28 kg/m2 [facility] 04-01-2023 17:52-0400 Body temperature 98 [degF] [facility] 04-01-2023 17:52-0400 Body weight 83.86 kg [facility] 04-01-2023 17:52-0400 Diastolic blood pressure 73 mm[Hg] [facility] 04-01-2023 17:52-0400 Heart rate 82 /min [facility] 04-01-2023 17:52-0400 Respiratory rate 18 /min [facility] 04-01-2023 17:52-0400 SaO2% (BldA) [Mass fraction] 100 % [facility] 04-01-2023 17:52-0400 Systolic blood pressure 124 mm[Hg] [facility] 06-04-2022 18:37-0500 Body height 165.1 cm [facility] Work Phone: 06-04-2022 18:37-0500 Body mass index (BMI) [Ratio] 31.2 kg/m2 [facility] Work Phone: 06-04-2022 18:37-0500 Body temperature 97.9 [degF] [facility] Work Phone: 06-04-2022 18:37-0500 Body weight 85.27 kg [facility] Work Phone: 06-04-2022 18:37-0500 Diastolic blood pressure 79 mm[Hg] [facility] Work Phone: 06-04-2022 18:37-0500 Heart rate 103 /min [facility] Work Phone: 06-04-2022 18:37-0500 Respiratory rate 16 /min [facility] Work Phone: 06-04-2022 18:37-0500 SaO2% (BldA) [Mass fraction] 100 % [facility] Work Phone: 06-04-2022 18:37-0500 Systolic blood pressure 128 mm[Hg] [facility] Work Phone: 03-08-2022 16:25-0400 Body height 165.1 cm [facility] Work Phone: 03-08-2022 16:25-0400 Body mass index (BMI) [Ratio] 31.6 kg/m2 [facility] Work Phone: 03-08-2022 16:25-0400 Body temperature 98.5 [degF] [facility] Work Phone: 03-08-2022 16:25-0400 Body weight 86.4 kg [facility] Work Phone: 03-08-2022 16:25-0400 Diastolic blood pressure 76 mm[Hg] [facility] Work Phone: 03-08-2022 16:25-0400 Heart rate 83 /min [facility] Work Phone: 03-08-2022 16:25-0400 Respiratory rate 15 /min [facility] Work Phone: 03-08-2022 16:25-0400 SaO2% (BldA) [Mass fraction] 99 % [facility] Work Phone: 03-08-2022 16:25-0400 Systolic blood pressure 117 mm[Hg] [facility] Work Phone: Encounters Encounter Date Encounter Type Care Provider Facility Start: 01-14-2025 End: 01-14-2025 ambulatory Eric Leal MD Work Phone: -Laboratory [facility] Start: 01-14-2025 End: 01-14-[address] Eric Leal MD -Laboratory [facility] Start: 01-14-2025 End: 01-14-2025 ambulatory Eric Leal Facility:[facility] Start: 10-22-2024 End: 10-22-2024 ambulatory Eric Leal MD Work Phone: [facility] Work Phone: Start: 10-22-2024 End: 10-22-[address] Eric Leal MD -[facility] Start: 10-22-2024 End: 10-22-2024 ambulatory Chalon Mel Facility:[facility] Start: 08-22-2024 End: 08-22-2024 ambulatory Eric Leal MD Work Phone: [facility] Work Phone: Start: 08-22-2024 End: 08-22-[address] Eric Leal MD -[facility] Start: 08-22-2024 End: 08-22-2024 ambulatory Chalon Mel Facility:[facility] Start: 08-14-2024 End: 08-14-[address] Idania Almanza MD -[facility] Work Phone: Start: 08-14-2024 End: 08-14-2024 ambulatory Chalon Mel Facility:[facility] [place] Start: 07-31-2024 End: 07-31-[address] Idania Almanza MD -[facility] Work Phone: Start: 07-31-2024 End: 07-31-2024 ambulatory Idania Almanza Facility:[facility] [place] Start: 07-22-2024 End: 07-22-2024 Emergency department patient visit Dr. Tramaine Hernández DO -Emergency Department Work Phone: Start: 05-20-2024 End: 05-20-[address] Eric Leal MD -[facility] Start: 05-20-2024 End: 05-20-2024 ambulatory Chalon Mel Facility:[facility] Start: 03-11-2024 End: 03-11-2024 ambulatory Chalon Mel Facility:[facility] Start: 09-14-2023 End: 09-14-2023 ambulatory DO Meli Bernard Work Phone: [facility] Work Phone: Start: 09-14-2023 End: 09-14-2023 Patient encounter procedure DO Meli Bernard Work Phone: [facility] Start: 09-11-2023 End: 09-11-2023 ambulatory DO Meli Buckley Joana Work Phone: [facility] Work Phone: Start: 09-11-2023 End: 09-11-2023 Patient encounter procedure DO Meli Bernard Work Phone: [facility] Start: 07-10-2023 End: 07-10-2023 Patient encounter procedure DO Meli Wymannger Work Phone: [facility] Work Phone: Start: 04-18-[address] TASHA MARKS DO Facili ty:B Start: 04-05-[address] TASHA Mcclendon ty:B Start: 04-02-2023 Non-patient / Non-visit Dr. Lisset Marks Work Phone: [facility] Start: 04-02-2023 End: 04-02-[address] Tasha Marks Work Phone: [facility] Work Phone: Start: 04-02-2023 End: 04-02-[address] Tasha Marks Work Phone: [facility] Work Phone: Start: 04-01-2023 End: 04-01-2023 Emergency department patient visit [facility]-Emergency Department Work Phone: Start: 03-29-2023 End: 03-30-[address] TASHA MARKS DO Facility:[facility] Start: 03-29-2023 End: 03-29-[address] TASHA MARKS DO [facility] Start: 06-13-2022 End: 06-14-[address] TASHA MARKS DO Facility:[facility] Start: 06-13-2022 End: 06-13-[address] TASHA MARKS DO [facility] Start: 06-11-2022 End: 06-12-[address] TASHA MARKS DO Facility:[facility] Start: 06-11-2022 End: 06-11-[address] TASHA MARKS DO [facility] Start: 06-04-2022 End: 06-04-2022 Emergency department patient visit [facility]-Emergency Department Start: 03-08-2022 End: 03-08-2022 Emergency department patient visit [facility]-Emergency Department Procedures Date Procedure Procedure Detail Performing Clinician Start: 04-01-2023 Plain chest X-ray Oral (qualifier value) DR LISSET MARKS DO Plan of Treatment Date Care Activity Detail Author Start: 09-14-2023 [facility] Start: 04-01-2023 [facility] Patient Education [facility] Work Phone: Patient referral [facility] Work Phone: Thyroglobulin antibo dy measurement [facility] Thyroid stimulating immunoglobulins actual/normal in Serum [facility] Thyroperoxidase Ab [ Units/volume] in Serum or Plasma [facility] Immunizations Immunization Date Immunization Notes Care Provider Fa [facility] 05-24-2021 SARS-CoV-2 (COVID-19 ) mRNA-[address] TASHA MARKS DO [facility] 11-20-2020 SARS-CoV-2 (COVID-19 ) mRNA-[address] TASHA MARKS DO [facility] 10-23-2020 SARS-CoV-2 (COVID-19 ) mRNA-[address] TASHA MARKS DO [facility] 11-21-2018 hepatitis A vaccine, adult dosage DR TASHA MARKS DO Y[facility] Brisen[facility] Comment on above: Result Comment: 2022: [employer] Payers Date Payer Category Payer Self-pay [id number] 2023 Unknown [id number] 2022 Unknown [id number] 1970 Unknown [id number] 2.16.8 [id number] 1969 Unknown [id number] 2.16.8 [id number] 1969 Unknown [id number] 2.16.8 [id number] 1970 Unknown [id number] 2.16.8 [id number] 1969 Unknown [id number] 2.16.8 [id number] Unknown [id number] 2.16.8 [id number] Unknown [id number] 2.16.8 [id number] Unknown [id number] 2.16.8 [id number] Unknown [id number] 2.16.8 [id number] Unknown [id number] 2.16.8 [id number] Unknown [id number] 2.16.8 [id number] Unknown [id number] 2.16.8 [id number] Unknown [id number] 2.16.8 [id number] Social History Date Type Detail Facility Start: 03-08-2022 End: 07-10-2023 Tobacco smoking status NHIS Unknown if ever smoked [facility] Start: 01-04-2020 None [facility] Start: 11-20-2019 Alone [facility] Start: 1970 Sex Assigned At Female [facility] Start: 09-09-2020 Tobacco smoking status Heavy t obacco smoker (finding) [facility] Sex Assigned At Sex [facility] Start: 07-31-2024 Tobacco smoking stat us NHIS Ex-smoker (finding) [facility] Start: 08-27-2024 Sex Female (finding) [facility] Mental Status Date Assessment Result Facility 07-22-2024 Cognitive function Level Of Cons ciousness Awake;Alert;Appropriate;Follow s Commands [facility] Work Phone: 04-01-2023 Cognitive function Level Of Cons ciousness Awake;Alert;Appropriate;Follow s Commands [facility] Work Phone: Clinical Notes 07-31-2024 Note Date & Type Note Facility 07-31-2024 Evaluation note Diagnosis Onset Date Resolution Hemorrhoid acute July 31 1:35pm Hemorrhoid acute August 14 1:39pm [facility] Work Phone: Evaluation + Plan note Future Appointments Appointment Date:06/30/2022 04:30:00 PM Scheduled Provider:TASHA MARKS DO Location:[facility] Appointment Type:PC OV Appointment Date:09/02/2022 03:00:00 PM Scheduled Provider:TASHA MARKS DO Location:[facility] Appointment Type:PC OV Follow Up Future Scheduled Tests Laboratory* Antinuclear Antibody Screen, Serum 06/10/22 * C-Reactive Protein 06/10/22 * Rheumatoid Factor 06/10/22 * Complete Blood Count 06/10/22 * Complete Metabolic Panel 06/10/22 Radiology* XR Spine Cervical w/ Obliques 5 Views 06/10/22 [facility] Evaluation + Plan note Future Appointments Appointment Date:06/30/2022 04:30:00 PM Scheduled Provider:TASHA MARKS DO Location:[facility] Appointment Type:PC OV Appointment Date:09/02/2022 03:00:00 PM Scheduled Provider:TASHA MARKS DO Location:[facility] Appointment Type:PC OV Follow Up Diagnostic Tests Pending * Antinuclear Antibody Screen, Serum 06/13/22 * Rheumatoid Factor 06/13/22 Future Scheduled Tests Radiology* XR Spine Cervical w/ Obliques 5 Views 06/10/22 [facility] Evaluation + Plan note Future Appointments Appointment Date:04/05/2023 01:00:00 PM Scheduled Provider:TASHA MARKS DO Location:[facility] Appointment Type: OV Future Scheduled Tests Radiology* MA Mammo Screening Bilateral w/ Dinesh 03/29/23 [facility] Evaluation noteNo assessment information available [facility] Work Phone: Evaluation note* Diagnosis Onset Date Resolution Status Anxiety and depression acute [facility] Work Phone: Hospital course Narrative No data available for this section [facility] Hospital Discharge instructions Additional Instructions Follow-up with your primary care physician as soon as possible.[facility] Work Phone: Hospital Discharge instructions No data available for this section [facility] Progress note No data available for this section [facility] Reason for referral (narrative)No reason for [facility] Chief Complaint and Reason for Visit Chief Complaint LOWER EXTREMITY Chief Complaint LOWER EXTREMITY LOWER EXTREMITY Chief Complaint gen illness Chief Complaint gen illness US Chief Complaint PHELM Reason for Visit Anxiety and depressi on Chief Complaint Admit Date Hemorrhoid July 22, 2024 2:15pm Hemorrhoids July 31, 2024 1:35 pm MED CHECK August 14, 2024 1:3 9pm Reason for Visit Admit Date Hemorrhoid July 31, 2024 1:35 pm Hemorrhoid August 14, 2024 1:3 9pm Advance Directives No Advanced Directives Records Found Advance Directive Response Recorded Date/ Time Living Will No March 08 5:38pm Power of Slubber Runner No March 08, 2022 5:38pm Advance Directive Response Recorded Date/ Time Living Will No June 04 6:46pm Power of Slubber Runner No June 04, 023 6:46pm Advance Directive Response Recorded Date/ Time Living Will No April 01 5:52pm Power of Slubber Runner No April 01, 2023 5:52pm Advance Directive Response Recorded Date/ Time Living Will No April 01 4:52pm Power of Slubber Runner No April 01, 2023 4:52pm Advance Directive Response Recorded Date/ Time Living Will No April 23, 2 023 8:21pm Power of Slubber Runner No April 23, 2023 8:21pm Advance Directive Response Recorded Date/ Time Living Will No July 22, 2 025 4:34pm Do you have a Healthcare Power of Slubber Runner? No July 22, 2024 4:34pm Summary Purpose Family History No Family History Records Found Additional Source Comments Goals (unrecognized section and content) Goals may be documented in a n alternate sectionGoals may be documented in an alternate section No data available for this section No data available for this section No data available for this sectionGoals may be documented in an alternate sectionGoals may be documented in an alternate sectionGoals may be documented in an alternate sectionGoals may be documented in an alternate sectionGoals may be documented in an alternate sectionGoals may be documented in an alternate sectionGoals may be documented in an alternate section Care Team (unrecognized sect ion and content) Care Team Personnel Name: TASHA MARKS DO Position: P4 Physician - Primary Care Member Role: Primary Care Physician Address: Address: [address] [place] [address] Care Team Related Persons Name: ARELY BRYANT Name: ARELY BRYANT Care Team Personnel Name: TASHA MARKS DO Position: P4 Physician - Primary Care Member Role: Primary Care Physician Address: Address: [address] [place], [place] [address] Care Team Related Persons Name: ARELY BRYANT Name: ARELY BRYANT Patient Care team informatio n (unrecognized section and content) Team Status: Active Member Role Status Dates Dr. Tasha Marks , Primary Care Provider Active Team Status: Active Member Role Status Dates Dr. Tasha Marks , Primary Care Provider Active Dr. Rolan Rea MD Attending Provider Active Team Status: Inactive Member Role Status Dates Dr. Tasha Marks DO Primary Care Provider Active Dr. Tania Renner DO Attending Provider Active Team Status: Inactive Member Role Status Dates Dr. Tania Renner , Attending Provider, Emergency Pro vider Active Dr. Tasha Marks DO Primary Care Provider Active Team Status: Inactive Member Role Status Dates Dr. Tania Renner DO Emergency Provider Active Dr. Tasha Marks DO Primary Care Provider Active Team Status: Active Member Role Status Dates Meli Bernard DO Primary Care Provider Active Team Status: Inactive Member Role Status Dates Meli Bernard DO Primary Care Provider, Referring Provider Active Shaan PLATA, PA Attending Provider Active Team Status: Active Member Role Status Dates Meli Bernard DO Primary Care Provider, Attending Provider Active Team Status: Inactive Member Role Status Dates Meli Bernard DO Primary Care Provider, Attending Provider Active Team Status: Active Member Role Status Alisia Leal MD Primary Care Provider Active Team Status: Inactive Member Role Status Alisia Leal MD Primary Care Provider Active St art: May 20, 2024 End: May 20, 2024 Eric Leal MD Attending Provider Active Start : May 20, 2024 End: May 20, 2024 Eric Leal MD Referring Provider Active Start : May 20, 2024 End: May 20, 2024 Team Status: Inactive Member Role Status Alisia Leal MD Primary Care Provider Active St art: July 22, 2024 End: July 22, 2024 Dr. Tramaine Hernández DO Attending Provider Active Start: July 22, 2024 End: July 22, 2024 Dr. Tramaine Hernández DO Emergency Provider Active Start: July 22, 2024 End: July 22, 2024 Team Status: Inactive Member Role Status Alisia Leal MD Primary Care Provider Active St art: July 31, 2024 End: July 31, 2024 Eric Leal MD Referring Provider Active Start : July 31, 2024 End: July 31, 2024 Dr. Idania Almanza MD Attending Provider Active Start: July 31, 2024 End: July 31, 2024 Team Status: Inactive Member Role Status Alisia Leal MD Primary Care Provider Active St art: August 14, 2024 End: August 14, 2024 Eric Leal MD Referring Provider Active Start : August 14, 2024 End: August 14, 2024 Dr. Idania Almanza MD Attending Provider Active Start: August 14, 2024 End: August 14, 2024 Team Status: Inactive Member Role Status Alisia Leal MD Primary Care Provider Active St art: August 22, 2024 End: August 22, 2024 Eric Leal MD Attending Provider Active Start : August 22, 2024 End: August 22, 2024 Eric Leal MD Referring Provider Active Start : August 22, 2024 End: August 22, 2024 Team Status: Inactive Member Role Status Alisia Leal MD Primary Care Provider Active St art: October 22, 2024 End: October 22, 2024 Eric Leal MD Attending Provider Active Start : October 22, 2024 End: October 22, 2024 Eric Leal MD Referring Provider Active Start : October 22, 2024 End: October 22, 2024 Team Status: Active Member Role/Relationship Status Alisia Leal MD Primary Care Provider Active Team Status: Inactive Member Role/Relationship Status Alisia Leal MD Primary Care Provider Active St art: October 22, 2024 End: October 22, 2024 Eric Leal MD Attending Provider Active Start : October 22, 2024 End: October 22, 2024 Eric Leal MD Referring Provider Active Start : October 22, 2024 End: October 22, 2024 Team Status: Inactive Member Role/Relationship Status Alisia Leal MD Primary Care Provider Active St art: January 14, 2025 End: January 14, 2025 Eric Leal MD Attending Provider Active Start : January 14, 2025 End: January 14, 2025 Eric Leal MD Referring Provider Active Start : January 14, 2025 End: January 14, 2025 INFORMATION SOURCE (unrecogn ized section and content) DATE CREATED AUTHOR 04/20/2023 [facility] ([place]) DATE CREATED AUTHOR AUTHOR'S JONH JULIANSARA 01/21/2025 [facility] FOR RECORDS PERTAINING TO PATIENTS WHO ARE OR HAVE BEEN ENROLLED IN A CHEMICAL DEPENDENCY/SUBSTANCEABUSE PROGRAM, SOME INFORMATION MAY BE OMITTED. This clinical summary was aggregated from multiple sources. Caution should be exercised in using it in the provision of clinical care. This summary normalizes information from multiple sources, and as a consequence, information in this document may materially change the coding, format and clinical context of patient data. In addition, data may be omitted in some cases. CLINICAL DECISIONS SHOULD BE BASED ON THE PRIMARY CLINICAL RECORDS. [email or web address] provides no warranty or guarantee of the accuracy or completeness of information in this document.
== END 2025-02-14 17:35 | disposition left against medical advice (07) ==
LOC: ED 17:58
PROVIDERS: PCP Family Medicine
DX: Z53.21 Procedure and treatment not carried out due to patient leaving prior to being seen by health care provider (principal)

== ENCOUNTER 2025-02-15 12:56 | Emergency (ER) | payer MEDICAID, SELFPAY ==
[2025-02-15 12:57] VITALS: BP 115/80; PULSE 72; RESP 18; TEMP 36.5; O2SAT 100; BMI 31.4
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
--- OUTSIDE RECORDS SUMMARY | 2025-02-15 13:38 | XMS RPT_ITS | CCD ---
Author Organization [facility] CliniSysc Care Team Providers Care Milling Operator Name Role Phone AURA TIJERINA, DR CORDOVA [...] Dr. Idania Almanza MD Attending Provider [phone] Eric Leal MD Primary Care Provider Eric [...] for Muscle Spasm April 01, 2023 12:00am [place] 4-Asj-Oot-Fish Oil (3 sources) Start: 12-03-2023 [place] 2-Mkp-Gup-Fish Oil (Fish Oil) 300-1,000 mg capsule Active [...] med., # 28 tab(s), 1 Refill(s), Pharmacy: [facility], 168, cm, 03/29/23 10:42:00 EDT, [...] med., # 42 tab(s), 0 Refill(s), Pharmacy: [facility], 168, cm, 06/10/22 14:42:00 EST, Height Start Date: 06/10/22 Stop Date: 06/17/22 Status: Ordered Arxudbrm-Hdd-Qife-Fa -Vit K-Lut (Centrum Silver Women) 8 mg iron-400 mcg-50 mcg tablet (3 sources) Start: 12-03-2023 take 1 tablet by mouth once daily Pakleubo-Zda-Juer-F a-Vit K-Lut (Centrum Silver Women) 8 mg [...] on 01-14-2025 TSH Qn 3.260 uIU/mL 0.300-4.200 [facility] Thyroid Stim Hormone (TSH)on 01-14-2025 TSH 3.260 uIU/mL Normal 0.300-4.200 [facility] Comment on above: Order Comment: Order Date: 03/11/24 Order Info: 3016-3 - TSH Performed By: #### L [id number] #### [facility] [address] [place] [address], [id number] TSH DL <= 0.005 mIU/L QnOrde red By: Eric Leal on 10-22-2024 TSH Qn 1.790 uIU/mL 0.300-4.200 [facility] Thyroid Stim Hormone (TSH)on 10-22-2024 TSH 1.790 uIU/mL Normal 0.300-4.200 [facility] Comment on above: Order Comment: Order Date: 09/06/24 Order Info: 3016-3 - TSH Performed By: #### L [id number] #### [facility] [address] [place], [place], [address] TSH DL <= 0.005 mIU/L QnOrde red By: Eric Leal on 08-22-2024 Thyroid Stimulating Hormone (TSH) 0.295 uIU/mL Low 0.300-4.200 [facility] TSH Qn 0.295 uIU/mL Low 0.300-4.200 [facility] Thyroid Stim Hormone (TSH)on 08-22-2024 TSH 0.295 uIU/mL Low 0.300-4.200 [facility] Comment on above: Order Comment: Order Date: 05/24/24 Order Info: 3016-3 - TSH Performed By: #### L [id number] #### [facility] [address] [place], [address] Surgery Visit Reporton 08-14 Surgery Visit Report [facility] [address] [place], [place] [address] OFFICE VISIT Date of Service: 08/14/24 MR#: [id number] Acct: [id number] Name: REJI JOHNSON Rep #: [id number] : 1970 Provider: Dr. Idania haji MD Age/Sex: 54/F Location: [facility] Status: Signed Intake Vital Signs 07/31/24 14:04 [...] 200 mg PO DAILY 12/03/23 08/14/24 History lfjzmlyu-gdog-fllc 8 mg-folic 400 1 tab PO DAILY 12/03/23 08/14/24 History mcg-K 50 mcg-lutein 300 mcg tablet (Centrum Silver Women) olanzapine 2.5 mg tablet 1.25 mg PO QHS 12/03/23 08/14/24 H istory omega 9-yds-zxi-fish oil 300 1 cap PO DAILY 12/03/23 08/14/24 H istory mg-1,000 mg capsule (Fish Oil) hydrocortisone 2.5 % topical cream 1 applic HI QHS PRN hemorrhoids 07/22/24 08/14/24 Rx with perineal applicator #30 grams (Anusol-HC) phenylephrine HCl 0.25 % rectal 1 supp HI BID 08/14/24 08/14/24 Hi story suppository (Preparation [...] patient that (more content not included)... Normal [facility] Surgery Visit Reporton 07-31 Surgery Visit Report [facility] [address] [facility] [facility] [place] [address] OFFICE VISIT Date of Service: 07/31/24 MR#: [id number] Acct: [id number] Name: REJI JOHNSON Rep #: [id number] : 1970 Provider: Dr. Idania haji MD Age/Sex: 54/F Location: [facility] Status: Signed Intake Vital Signs 12/03/23 22:27 [...] 200 mg PO DAILY 12/03/23 07/31/24 History hrbzhfdn-onas-cthz 8 mg-folic 400 1 tab PO DAILY 12/03/23 07/31/24 History mcg-K 50 mcg-lutein 300 mcg tablet (Centrum Silver Women) olanzapine 2.5 mg tablet 1.25 mg PO QHS 12/03/23 07/31/24 H istory omega 0-mpt-tbe-fish oil 300 1 cap PO DAILY 12/03/23 07/31/24 H istory mg-1,000 mg capsule (Fish Oil) hydrocortisone 2.5 % topical cream 1 applic HI QHS PRN hemorrhoids 07/22/24 07/31/24 Rx with perineal applicator #30 grams (Anusol-HC) [facility] Medical History (Updated 08/02/24 @ 12:37 by [...] Inspection: n (more content not included)... Normal [facility] Emergency Department Summary on 07-22-2024 Emergency Department Summary [facility] Medical Records Department [address] [place] [address] Emergency Department Summary 07/22/24 MR#: [id number] Acct: [id number] Name: REJI JOHNSON Rep #: [id number] : 1970 54 From: Tramaine Hernández DO [...] mg PO DAILY 12/03/23 Unknown H istory pdjskxjf-bkvo-xbzm 8 mg-folic 400 1 tab PO DAILY 12/03/23 Unknown H istory mcg-K 50 mcg-lutein 300 mcg tablet (Centrum Silver Women) olanzapine 2.5 mg tablet 1.25 mg PO QHS 12/03/23 Unknown Hi story omega 2-iqu-cvu-fish oil 300 1 cap PO DAILY 12/03/23 Unknown Hi story mg-1,000 mg capsule (Fish Oil) hydrocortisone 2.5 % topical cream 1 applic HI QHS PRN hemorrhoids 07/22/24 Unknown Rx with [...] reviewed Constitutional: please see mdm Rectal: (Performed management retail intern Alba COLE) no obvious fissures, no rectal [...] Dispo: Di (more content not included)... Normal [facility] TSH QnOrdered By: Eric coe on 05-20-2024 Thyroid Stimulating Hormone (TSH) 1.710 uIU/mL 0.358-3.740 [facility] Thyroid Stim Hormone (TSH)on 05-20-2024 TSH 1.710 uIU/mL Normal 0.358-3.740 [facility] Comment on above: Order Comment: Order Date: 04/12/24 Order Info: 3016-3 - TSH Performed By: #### L [id number] #### [facility] [address] [facility] [place], [place], [id number] T4 Free Directon 03-11-2024 T4 FREE DIRECT 0.99 ng/dL Normal 0.76-1.46 [facility] Comment on above: Order Comment: Order Date: 03/08/24 Order Info: 3016-3 - TSH Order Date: 01/23/24 Order Info: 3024-7 - T4F Performed By: #### L 506.0400 #### [facility] [address] [facility] [place], [place], [address] Thyroid Stim Hormone (TSH)on 03-11-2024 TSH 4.150 uIU/mL High 0.358-3.740 [facility] Comment on above: Order Comment: Order Date: 03/08/24 Order Info: 3016-3 - TSH Order Date: 01/23/24 Order Info: 3024-7 - T4F Performed By: #### L [id number] #### [facility] [place], [address] No Panel InformationOrdered By: Meli Bernard on 09-14-2023 Free Triiodothyronine (T3) pg/dL 2.4 pg/mL 2.18-3.98 [facility] Thyroglobulin Antibody < 1.0 IU/mL 0.0-0.9 [facility] Comment on above: Thyroglobulin Antibo dy measured by [facility] HealthMethodologyIt should be noted that the presence of thyroglobulinantibodies may not be pathogenic nor diagnostic, especiallyat very low levels. The assay community service organization director has found thatfour percent of individuals without evidence of thyroiddisease or autoimmunity will have positive TgAb levels upto 4 IU/mL.Performed at: [facility] [address] [id number] Director: Clay Rg MD, Phone: [phone] at: [facility] [address] [id number] Director: Adrián Veliz PhD, Phone: [phone] Serum or plasma thyroid stim ulating hormone (TSH) measurement (units/volume)Ordered By: Meli Bernard on 09-14-2023 TSH Qn 10.40 uIU/mL 0.358-3.74 [facility] Serum or plasma thyroperoxid ase antibody assay (units/volume)Ordered By: Meli Bernard on 09-14-2023 TPO Ab Qn 373 [IU]/mL 0-34 [facility] Thin prep Papanicolaou smear with manual screeningOrdered By: Meli Bernard on 09-14-2023 Thin prep Papanicolaou smear with manual screening 0.77 ng/dL 0.76-1.46 [facility] Thyroid stimulating immunogl obulins detectionOrdered By: Meli Bernard on 09-14-2023 Thyroid stimulating immunoglobulins Ql (S) <0.10 IU/L 0.00-0.55 [facility] Absolute lymphocyte countOrd ered By: Meli Bernard on 09-11-2023 Lymphocytes Auto (Unsp spec) [#/Vol] 1.28 10*3/uL 0.83-4.51 [facility] Automated lymphocyte count a s percentage of total leukocytesOrdered By: Meli Bernard on 09-11-2023 Lymphocytes/100 WBC Auto (Unsp spec) 17.3 % 19-41 [facility] Basophil percentageOrdered B y: Meli Bernard on 09-11-2023 Basophils/100 WBC (Bld) 0.7 % 0-1 [facility] Bilirubin [Mass/Vol] 0.60 mg/dL 0.20-1.00 [facility] Comment on above: For patients on eltr ombopag therapy, use of Dimension [place] TBIL is not recommended. Chloride [Moles/Vol] 108 mmol/L 98-107 [facility] Eosinophils/100 WBC (Bld) 0.8 % 0-5 [facility] Glucose [Mass/Vol] 140 mg/dL 74-106 [facility] Comment on above: Fasting Glucose resu lt greater than or equal to 126 mg/dL suggests DIABETES MELLITUS per A.D.A. criteria. Hemoglobin (Bld) [Mass/Vol] 13.9 g/dL 12.0-15.0 [facility] Monocytes/100 WBC (Bld) 6.4 % 0-10 [facility] Neutrophils (Bld) [#/Vol] 5.5 10*3/uL 2.0-7.7 [facility] Neutrophils/100 WBC (Bld) 74.5 % 47-70 [facility] Potassium [Moles/Vol] 4.1 mmol/L 3.5-5.1 [facility] Protein [Mass/Vol] 7.2 g/dL 6.4-8.2 [facility] Sodium [Moles/Vol] 139 mmol/L 136-145 [facility] WBC (Bld) [#/Vol] 7.4 10*3/uL 4.4-11.0 [facility] Cholesterol [Mass/Vol] 262 mg/dL <200 [facility] Comment on above: <200 mg/dL Desirable 200-240 mg/dL Borderline >240 mg/dL High Risk Triglyceride [Mass/Vol] 56 mg/dL <199 [facility] Comment on above: The drugs N-Acetylcy steine and Metamizole may falsely depress this assay.Serum Triglycerides Reference Interval Normal <150 mg/dL Borderline high 150 - 199 mg/dL High 200 - 499 mg/dL Very High > or = 500 mg/dL Determination of erythrocyte mean corpuscular volume (MCV)Ordered By: Meli Bernard on 09-11-2023 MCV (RBC) [Entitic vol] 102.7 fL 81-99 [facility] Erythrocyte distribution wid th ratioOrdered By: Meli Bernard on 09-11-2023 Erythrocyte distribution width (RBC) [Ratio] 13.3 % 11.6-14.6 [facility] Erythrocyte distribution wid th standard deviationOrdered By: Meli Bernard on 09-11-2023 Erythrocyte distribution width (RBC) [Entitic vol] 50.9 fL 35.1-43.9 [facility] Hematocrit Auto (Bld) [Volum e fraction]Ordered By: Meli Bernard on 09-11-2023 Hematocrit (Bld) [Volume fraction] 41.2 % 37-47 [facility] Immature granulocytes/100 WB C Auto (Bld)Ordered By: Meli Bernard on 09-11-2023 Immature granulocytes/100 WBC (Bld) 0.300 % 0.0-0.9 [facility] Comment on above: IG% - Immature Granu locytes (promyelocytes, myelocytes and metamyelocytes) > 1% indicates that a LEFT SHIFT is Present. Laboratory - Chemistry and C hemistry - challengeOrdered By: Meli Bernard on 09-11-2023 Albumin/Globulin [Mass ratio] 0.9 {ratio} 0.9-2.4 [facility] ALP [Catalytic activity/Vol] 125 U/L 45-117 [facility] ALT [Catalytic activity/Vol] 55 U/L 13-56 [facility] CO2 [Moles/Vol] 25.0 mmol/L 21.0-32.0 [facility] Globulin (S) [Mass/Vol] 3.7 g/dL 2.2-4.2 [facility] Urea nitrogen/Creatinine [Mass ratio] 25.2 mg/mg 10-20 [facility] Cholesterol in HDL [Mass/Vol] 99 mg/dL >40 [facility] Comment on above: The drugs N-Acetylcy steine and Metamizole may falsely depress this assay. Reference Range HDL <40 mg/dL Low HDL Cholesterol HDL >or= 60 mg/dL High HDL Cholesterol Cholesterol in LDL [Mass/Vol] 152 mg/dL 0-130 [facility] Laboratory - Hematology and Cell countsOrdered By: Meli Bernard on 09-11-2023 MCH (RBC) [Entitic mass] 34.7 pg 27.0-32.0 [facility] MCHC (RBC) [Mass/Vol] 33.7 g/dL 32-36 [facility] Nucleated RBC/100 WBC (Bld) [Ratio] 0 % 0-5 [facility] Platelet mean volume (Bld) [Entitic vol] 10.5 fL 6.2-12.0 [facility] Platelets (Bld) [#/Vol] 201 10*3/uL 150-450 [facility] No Panel InformationOrdered By: Meli Bernard on 09-11-2023 Estimated GFR (MDRD) Amer 78 mL/min >60 [facility] Comment on above: GFR Calc Estimated GFR (MDRD) Non-Af Amer 65 mL/min >60 [facility] Comment on above: Non- GFR Calc VLDL Cholesterol 11 mg/dL 5-40 [facility] RBC Auto (Bld) [#/Vol]Ordere d By: Meli Bernard on 09-11-2023 RBC (Bld) [#/Vol] 4.01 10*6/uL 4.2-5.4 [facility] Serum or plasma calcium fanta urement (mass/volume)Ordered By: Meli Bernard on 09-11-2023 Calcium [Mass/Vol] 9.9 mg/dL 8.5-10.1 [facility] Serum or plasma creatinine m easurement (mass/volume)Ordered By: Meli Bernard on 09-11-2023 Creatinine [Mass/Vol] 0.95 mg/dL 0.55-1.02 [facility] Comment on above: The validity of the calculated GFR & GFRAA in patients over 70 years has not been determined. Clinical correlation is essential. Serum or plasma thyroid stim ulating hormone (TSH) measurement (units/volume)Ordered By: Meli Bernard on 09-11-2023 TSH Qn 9.66 uIU/mL 0.358-3.74 [facility] Serum or plasma urea nitroge n measurement (mass/volume)Ordered By: Meli Bernard on 09-11-2023 Urea nitrogen [Mass/Vol] 24 mg/dL 7-18 [facility] Thin prep Papanicolaou smear with manual screeningOrdered By: Meli Bernard on 09-11-2023 Thin prep Papanicolaou smear with manual screening 3.5 g/dL 3.2-5.0 [facility] Thin prep Papanicolaou smear with manual screening 40 U/L 15-37 [facility] Thin prep Papanicolaou smear with manual screening 6 5- [facility] Whole blood hemoglobin A1c/t otal hemoglobin ratio (mass fraction)Ordered By: Meli Bernard on 09-11-2023 HbA1c (Bld) [Mass fraction] 5.3 % 3.8-5.6 [facility] Comment on above: Normal < 5.7 [...] 04/02/2023 11:24:24 AM Ordering Provider: TASHA MARKS [facility] ([place]) RFon 06-16-2022 Rheumatoid Factor 9.0 High <=6.0 [facility] ([place]) Comment on above: Result Comment: RF I [...] tests. These results were obtained with the [employer] QUANTA Lite RF IgM ETHAN. RF IgM values obtained with different manufacturers' assay methods may not be used interchangeably. The magnitude of the reported IgM levels cannot be correlated to an endpoint titer. Performed By: #### C MP, ANEU, CBC, GFR, CRP, ADIFF #### [place] [id number] [place], [place] [address] #### RF, ARCHANA #### [address] [address] ANAon 06-14-2022 Nuclear Ab IF (S) [Titer] 40 {titer} Normal Neg 40 [facility] ([place] Comment on above: Result Comment: ARCHANA Screen and Titer methodology is an immunofluorescent technique utilizing Hep2 Substrate. Performed By: #### C MP, ANEU, CBC, GFR, CRP, ADIFF #### [address] [address] #### RF, ARCHANA #### [address] [address] XR SPINE CERVICAL W/ OBLIQUE S 5 [...] 06/14/2022 3:35:02 PM Ordering Provider: TASHA Avila [facility] ([place]) .Auto Diffon 06-13-2022 Basophil, Absolute 0.0 10 3/mcL Normal 0.0-0.2 [facility] ([place]) Comment on above: Performed By: #### C MP, ANEU, CBC, GFR, CRP, ADIFF #### [place] [address] #### RF, ARCHANA #### [address] [address] Basophils/100 WBC (Bld) 0.9 % Normal 0.0-2.5 [facility] ([place]) Comment on above: Performed By: #### C MP, ANEU, CBC, GFR, CRP, ADIFF #### [address] [address] #### RF, ARHCANA #### [address] [address] Eosinophil, Absolute 0.1 10 3/mcL Normal 0.0-0.4 [facility] ([place]) Comment on above: Performed By: #### C MP, ANEU, CBC, GFR, CRP, ADIFF #### [place] [address] #### RF, ARCHANA #### [address] [address] Eosinophils/100 WBC (Bld) 2.0 % Normal 0.0-7.0 [facility] ([place]) Comment on above: Performed By: #### C MP, ANEU, CBC, GFR, CRP, ADIFF #### [address] [address] #### RF, ARCHANA #### [address] [address] Lymphocyte, Absolute 1.4 10 3/mcL Normal 0.8-3.9 [facility] ([place]) Comment on above: Performed By: #### C MP, ANEU, CBC, GFR, CRP, ADIFF #### [place] [address] #### RF, ARCHANA #### [address] [address] Lymphocytes/100 WBC (Bld) 29.6 % Normal 10.0-50.0 [facility] ([place]) Comment on above: Performed By: #### C MP, ANEU, CBC, GFR, CRP, ADIFF #### [place] [address] #### RF, ARCHANA #### [address] [address] Monocyte, Absolute 0.4 10 3/mcL Normal 0.2-1.0 [facility] ([place]) Comment on above: Performed By: #### C MP, ANEU, CBC, GFR, CRP, ADIFF #### [address] [address] #### RF, ARCHANA #### [address] [address] Monocytes/100 WBC (Bld) 7.5 % Normal 1.7-13.0 [facility] ([place]) Comment on above: Performed By: #### C MP, ANEU, CBC, GFR, CRP, ADIFF #### [address] [address] #### RF, ARCHANA #### [address] [address] Neutrophils/100 WBC (Bld) 60.0 % Normal 37.0-80.0 [facility] ([place]) Comment on above: Performed By: #### C MP, ANEU, CBC, GFR, CRP, ADIFF #### [address] [address] #### RF, ARCHANA #### [address] [address] .GFRon 06-13-2022 GFR 88 ml/min/1.73sqm Normal [facility] ([place] Comment on above: Result Comment: GFR Population [...] MP, ANEU, CBC, GFR, CRP, ADIFF #### [address] [address] #### RF, ARCHANA #### [place] [address] GFR Non- 73 ml/min/1.73sqm Normal [facility] ([place] Comment on above: Result Comment: GFR Population [...] MP, ANEU, CBC, GFR, CRP, ADIFF #### [place] [address] #### RF, ARCHANA #### [place] [address] .NEUABSon 06-13-2022 Neutrophil, Absolute 2.9 10 3/mcL Normal 2.9-6.2 [facility] ([place]) Comment on above: Performed By: #### C MP, ANEU, CBC, GFR, CRP, ADIFF #### [place] [address] #### RF, ARCHANA #### [place] [address] CBCon 06-13-2022 Erythrocyte distribution width (RBC) [Ratio] 13.8 % Normal 11.5-14.5 [facility] ([place]) Comment on above: Performed By: #### C MP, ANEU, CBC, GFR, CRP, ADIFF #### [place] [address] #### RF, ARCHANA #### [place] [address] Hematocrit (Bld) [Volume fraction] 40.0 % Normal 37.0-47.0 [facility] ([place] Comment on above: Performed By: #### C MP, ANEU, CBC, GFR, CRP, ADIFF #### [place] [address] #### RF, ARCHANA #### [place] [address] Hgb 13.4 G/dL Normal 12.0-16.0 [facility] ([place] Comment on above: Performed By: #### C MP, ANEU, CBC, GFR, CRP, ADIFF #### [place] [address] #### RF, ARCHANA #### [place] [address] MCH (RBC) [Entitic mass] 29.1 pg Normal 27.0-31.2 [facility] ([place] Comment on above: Performed By: #### C MP, ANEU, CBC, GFR, CRP, ADIFF #### [place] [address] #### RF, ARCHANA #### [place] [address] MCHC 33.4 G/dL Normal 33.0-37.0 [facility] ([place] Comment on above: Performed By: #### C MP, ANEU, CBC, GFR, CRP, ADIFF #### [place] [address] #### RF, ARCHANA #### [place] [address] MCV (RBC) [Entitic vol] 87.1 fL Normal 80.0-94.0 [facility] ([place] Comment on above: Performed By: #### C MP, ANEU, CBC, GFR, CRP, ADIFF #### [place] [address] #### RF, ARCHANA #### [place] [address] Platelet 223 10 3/mcL Normal 130-400 [facility] ([place] Comment on above: Performed By: #### C MP, ANEU, CBC, GFR, CRP, ADIFF #### [place] [address] #### RF, ARCHANA #### [place] [address] Platelet mean volume (Bld) [Entitic vol] 8.6 fL Normal 7.4-10.4 [facility] ([place] Comment on above: Performed By: #### C MP, ANEU, CBC, GFR, CRP, ADIFF #### [place] [address] #### RF, ARCHANA #### [place] [address] RBC 4.59 10 6/mcL Normal 4.20-5.40 [facility] ([place] Comment on above: Performed By: #### C MP, ANEU, CBC, GFR, CRP, ADIFF #### [place] [address] #### RF, ARCHANA #### [address] [address] WBC 4.8 10 3/mcL Normal 4.6-10.8 [facility] ([place] Comment on above: Performed By: #### C MP, ANEU, CBC, GFR, CRP, ADIFF #### [place] [address] #### RF, ARCHANA #### [place] [address] CMPon 06-13-2022 Albumin Level 4.6 G/dL Normal 3.5-5.0 [facility] ([place] Comment on above: Performed By: #### C MP, ANEU, CBC, GFR, CRP, ADIFF #### [place] [address] #### RF, ARCHANA #### [place] [address] Albumin/Globulin [Mass ratio] 1.4 {ratio} Normal 1.1-2.5 [facility] ([place] Comment on above: Performed By: #### C MP, ANEU, CBC, GFR, CRP, ADIFF #### [place] [address] #### RF, ARCHANA #### [place] [address] ALP [Catalytic activity/Vol] 62 U/L Normal 40-135 [facility] ([place] Comment on above: Performed By: #### C MP, ANEU, CBC, GFR, CRP, ADIFF #### [place] [address] #### RF, ARCHANA #### [place] [id number] ALT [Catalytic activity/Vol] 20 U/L Normal 14-59 [facility] ([place] Comment on above: Performed By: #### C MP, ANEU, CBC, GFR, CRP, ADIFF #### [place] [id number] #### RF, ARCHANA #### [address] [address] AST [Catalytic activity/Vol] 19 U/L Normal 10-40 [facility] ([place] Comment on above: Performed By: #### C MP, ANEU, CBC, GFR, CRP, ADIFF #### [place] [address] #### RF, ARCHANA #### [place] [address] Bili Total 0.5 mg/dL Normal 0.2-1.0 [facility] ([place] Comment on above: Result Comment: Use of this assay is not recommended for patients undergoing treatment with eltrombopag due to the potential for falsely elevated results. Performed By: #### C MP, ANEU, CBC, GFR, CRP, ADIFF #### [place] [address] #### RF, ARCHANA #### [place] [address] BUN/Creatinine Ratio 17 ratio Normal 7-27 [facility] ([place]) Comment on above: Performed By: #### C MP, ANEU, CBC, GFR, CRP, ADIFF #### [place] [address] #### RF, ARCHANA #### [place] [address] Calcium [Mass/Vol] 9.4 mg/dL Normal 8.4-10.2 [facility] ([place]) Comment on above: Performed By: #### C MP, ANEU, CBC, GFR, CRP, ADIFF #### [place] [address] #### RF, ARCHANA #### [place] [address] Chloride [Moles/Vol] 101 mmol/L Normal 98-107 [facility] ([place]) Comment on above: Performed By: #### C MP, ANEU, CBC, GFR, CRP, ADIFF #### [place] [address] #### RF, ARCHANA #### [address] [address] CO2 [Moles/Vol] 29 mmol/L Normal 22-29 [facility] ([place]) Comment on above: Performed By: #### C MP, ANEU, CBC, GFR, CRP, ADIFF #### [place] [address] #### RF, ARCHANA #### [place] [address] Creatinine [Mass/Vol] 0.82 mg/dL Normal 0.55-1.02 [facility] ([place]) Comment on above: Performed By: #### C MP, ANEU, CBC, GFR, CRP, ADIFF #### [place] [address] #### RF, ARCHANA #### [place] [address] Electrolyte Balance 11.0 mEq/L Normal 4.0-15.0 [facility] ([place]) Comment on above: Performed By: #### C MP, ANEU, CBC, GFR, CRP, ADIFF #### [place] [address] #### RF, ARCHANA #### [place] [address] Globulin 3.3 G/dL Normal [facility] Later [facility] ([place]) Comment on above: Performed By: #### C MP, ANEU, CBC, GFR, CRP, ADIFF #### [place] [id number] #### RF, ARCHANA #### [place] [id number] Glucose [Mass/Vol] 102 mg/dL Normal 70-105 [facility] ([place]) Comment on above: Performed By: #### C MP, ANEU, CBC, GFR, CRP, ADIFF #### [place] [address] #### RF, ARCHANA #### [facility] [address] [place], [place] [address] Potassium [Moles/Vol] 4.2 mmol/L Normal 3.5-5.1 [facility] ([place]) Comment on above: Performed By: #### C MP, ANEU, CBC, GFR, CRP, ADIFF #### [address] [address] #### RF, ARCHANA #### [address] [address] Sodium [Moles/Vol] 141 mmol/L Normal 136-145 [facility] ([place]) Comment on above: Performed By: #### C MP, ANEU, CBC, GFR, CRP, ADIFF #### [address] [address] #### RF, ARCHANA #### [place] [address] Total Protein 7.9 G/dL Normal 6.4-8.2 [facility] ([place]) Comment on above: Performed By: #### C MP, ANEU, CBC, GFR, CRP, ADIFF #### [address] [address] #### RF, ARCHANA #### [place] [address] Urea nitrogen [Mass/Vol] 14 mg/dL Normal 7-18 [facility] ([place] Comment on above: Performed By: #### C MP, ANEU, CBC, GFR, CRP, ADIFF #### [place] [address] #### RF, ARCHANA #### [address] [address] CRPon 06-13-2022 CRP [Mass/Vol] mg/L Normal 0.0-0.9 [facility] ([place]) Comment on above: Performed By: #### C MP, ANEU, CBC, GFR, CRP, ADIFF #### [address] [address] #### RF, ARCHANA #### [place] [address] LABORATORYOrdered By: SYSTEM SYSTEM on 06-13-2022 Albumin [...] 06/13/2022 12:36:28 AM Ordering Provider: TASHA MARKS [facility] ([place]) Vital Signs Date Time Vital Sign Value Performing Clinician Jacquesi debbie 07-31-2024 14:04-0500 Body height 172.72 cm Eric Leal MD Work Phone: [facility] 07-31-2024 14:04-0500 Body mass index (BMI) [Ratio] 29.8 kg/m2 Eric Leal MD Work Phone: [facility] 07-31-2024 14:04-0500 Body temperature 97.6 [degF] Eric Leal MD Work Phone: [facility] 07-31-2024 14:04-0500 Body weight 89.01 kg Eric Leal MD Work Phone: [facility] 07-31-2024 14:04-0500 Diastolic blood pressure 74 mm[Hg] Eric Leal MD Work Phone: [facility] 07-31-2024 14:04-0500 Heart rate 81 /min Eric Leal MD Work Phone: [facility] 07-31-2024 14:04-0500 Respiratory rate 18 /min Eric Leal MD Work Phone: [facility] 07-31-2024 14:04-0500 SaO2% (BldA) [Mass fraction] 100 % Eric Leal MD Work Phone: [facility] 07-31-2024 14:04-0500 Systolic blood pressure 115 mm[Hg] Eric Leal MD Work Phone: [facility] 07-22-2024 14:16-0500 Body mass index (BMI) [Ratio] 14.6 kg/m2 Eric Leal MD Work Phone: [facility] 07-22-2024 14:16-0500 Body temperature 98.2 [degF] Eric Leal MD Work Phone: [facility] 07-22-2024 14:16-0500 Body weight 43.71 kg Eric Leal MD Work Phone: [facility] 07-22-2024 14:16-0500 Diastolic blood pressure 75 mm[Hg] Eric Leal MD Work Phone: [facility] 07-22-2024 14:16-0500 Heart rate 89 /min Eric Leal MD Work Phone: [facility] 07-22-2024 14:16-0500 Respiratory rate 16 /min Eric Leal MD Work Phone: [facility] 07-22-2024 14:16-0500 SaO2% (BldA) [Mass fraction] 99 % Eric Leal MD Work Phone: [facility] 07-22-2024 14:16-0500 Systolic blood pressure 126 mm[Hg] Eric Leal MD Work Phone: [facility] 07-10-2023 13:06-0500 Body height 172.72 cm DO Meli Wymannger Work Phone: [facility] 07-10-2023 13:06-0500 Body mass index (BMI) [Ratio] 29.6 kg/m2 DO Meli Joana Work Phone: [facility] 07-10-2023 13:06-0500 Body temperature 99.7 [degF] DO Meli Joana Work Phone: [facility] 07-10-2023 13:06-0500 Body weight 88.45 kg DO Meli Joana Work Phone: [facility] 07-10-2023 13:06-0500 Diastolic blood pressure 82 mm[Hg] DO Meli Joana Work Phone: [facility] 07-10-2023 13:06-0500 Heart rate 67 /min DO Meli Joana Work Phone: [facility] 07-10-2023 13:06-0500 Respiratory rate 14 /min DO Melihaylee Wymannger Work Phone: [facility] 07-10-2023 13:06-0500 SaO2% (BldA) [Mass fraction] 97 % DO Meli Joana Work Phone: [facility] 07-10-2023 13:06-0500 Systolic blood pressure 138 mm[Hg] DO Meli Joana Work Phone: [facility] 04-01-2023 17:52-0400 Body height 172.72 cm [facility] 04-01-2023 17:52-0400 Body mass index (BMI) [Ratio] 28 kg/m2 [facility] 04-01-2023 17:52-0400 Body temperature 98 [degF] [facility] 04-01-2023 17:52-0400 Body weight 83.86 kg [facility] 04-01-2023 17:52-0400 Diastolic blood pressure 73 mm[Hg] [facility] 04-01-2023 17:52-0400 Heart rate 82 /min [facility] 04-01-2023 17:52-0400 Respiratory rate 18 /min [facility] 04-01-2023 17:52-0400 SaO2% (BldA) [Mass fraction] 100 % [facility] 04-01-2023 17:52-0400 Systolic blood pressure 124 mm[Hg] [facility] 06-04-2022 18:37-0500 Body height 165.1 cm [facility] Work Phone: 06-04-2022 18:37-0500 Body mass index (BMI) [Ratio] 31.2 kg/m2 [facility] Work Phone: 06-04-2022 18:37-0500 Body temperature 97.9 [degF] [facility] Work Phone: 06-04-2022 18:37-0500 Body weight 85.27 kg [facility] Work Phone: 06-04-2022 18:37-0500 Diastolic blood pressure 79 mm[Hg] [facility] Work Phone: 06-04-2022 18:37-0500 Heart rate 103 /min [facility] Work Phone: 06-04-2022 18:37-0500 Respiratory rate 16 /min [facility] Work Phone: 06-04-2022 18:37-0500 SaO2% (BldA) [Mass fraction] 100 % [facility] Work Phone: 06-04-2022 18:37-0500 Systolic blood pressure 128 mm[Hg] [facility] Work Phone: 03-08-2022 16:25-0400 Body height 165.1 cm [facility] Work Phone: 03-08-2022 16:25-0400 Body mass index (BMI) [Ratio] 31.6 kg/m2 [facility] Work Phone: 03-08-2022 16:25-0400 Body temperature 98.5 [degF] [facility] Work Phone: 03-08-2022 16:25-0400 Body weight 86.4 kg [facility] Work Phone: 03-08-2022 16:25-0400 Diastolic blood pressure 76 mm[Hg] [facility] Work Phone: 03-08-2022 16:25-0400 Heart rate 83 /min [facility] Work Phone: 03-08-2022 16:25-0400 Respiratory rate 15 /min [facility] Work Phone: 03-08-2022 16:25-0400 SaO2% (BldA) [Mass fraction] 99 % [facility] Work Phone: 03-08-2022 16:25-0400 Systolic blood pressure 117 mm[Hg] [facility] Work Phone: Encounters Encounter Date Encounter Type Care Provider Facility Start: 01-14-2025 End: 01-14-2025 ambulatory Eric Leal MD Work Phone: -[facility] Start: 01-14-2025 End: 01-14-[address] Eric Leal MD -[facility] Start: 01-14-2025 End: 01-14-2025 ambulatory Eric Leal Facility:[facility] Start: 10-22-2024 End: 10-22-2024 ambulatory Eric Leal MD Work Phone: [facility] Work Phone: Start: 10-22-2024 End: 10-22-[address] Eric Leal MD -[facility] Start: 10-22-2024 End: 10-22-2024 ambulatory Chalon Mel Facility:[facility] Start: 08-22-2024 End: 08-22-2024 ambulatory Eric Leal MD Work Phone: [facility] Work Phone: Start: 08-22-2024 End: 08-22-[address] Eric Leal MD -[facility] Start: 08-22-2024 End: 08-22-2024 ambulatory Chalon Mel Facility:[facility] Start: 08-14-2024 End: 08-14-[address] Idania Almanza MD -[facility] Work Phone: Start: 08-14-2024 End: 08-14-2024 ambulatory Chalon Mel Facility:[facility] Start: 07-31-2024 End: 07-31-[address] Idania Almanza MD -[facility] Work Phone: Start: 07-31-2024 End: 07-31-2024 ambulatory Idania Almanza Facility:[facility] Start: 07-22-2024 End: 07-22-2024 Emergency department patient visit Dr. Tramaine Hernández DO -Emergency Department Work Phone: Start: 05-20-2024 End: 05-20-[address] Eric Leal MD -[facility] Start: 05-20-2024 End: 05-20-2024 ambulatory Chalon Mel Facility:[facility] Start: 03-11-2024 End: 03-11-2024 ambulatory Chalon Mel Facility:[facility] Start: 09-14-2023 End: 09-14-2023 ambulatory DO Meli Bernard Work Phone: [facility] Work Phone: Start: 09-14-2023 End: 09-14-2023 Patient encounter procedure DO Meli Bernard Work Phone: [facility] Start: 09-11-2023 End: 09-11-2023 ambulatory DO Meli Buckley Joana Work Phone: [facility] Work Phone: Start: 09-11-2023 End: 09-11-2023 Patient encounter procedure DO Meli Bernard Work Phone: [facility] Start: 07-10-2023 End: 07-10-2023 Patient encounter procedure DO Meli Wymannger Work Phone: [facility] Work Phone: Start: 04-18-[address] TASHA MARKS DO Facili ty:B Start: 04-05-[address] TASHA Mcclendon ty:B Start: 04-02-2023 Non-patient / Non-visit Dr. Lisset Marks Work Phone: [facility] Start: 04-02-2023 End: 04-02-[address] Tasha Marks Work Phone: [facility] Work Phone: Start: 04-02-2023 End: 04-02-[address] Tasha Marks Work Phone: [facility] Work Phone: Start: 04-01-2023 End: 04-01-2023 Emergency department patient visit [facility]Emergency Department Work Phone: Start: 03-29-2023 End: 03-30-[address] TASHA MARKS DO Facility:[facility] Start: 03-29-2023 End: 03-29-[address] TASHA MARKS DO [facility] Start: 06-13-2022 End: 06-14-[address] TASHA MARKS DO Facility:[facility] Start: 06-13-2022 End: 06-13-[address] TASHA MARKS DO [facility] Start: 06-11-2022 End: 06-12-[address] TASHA MARKS DO Facility:[facility] Start: 06-11-2022 End: 06-11-[address] TASHA MARKS DO [facility] Start: 06-04-2022 End: 06-04-2022 Emergency department patient visit [facility]Emergency Department Start: 03-08-2022 End: 03-08-2022 Emergency department patient visit [facility]Emergency Department Procedures Date Procedure Procedure Detail Performing Clinician Start: 04-01-2023 Plain chest X-ray Oral (qualifier value) DR LISSET MARKS DO Plan of Treatment Date Care Activity Detail Author Start: 09-14-2023 [facility] Start: 04-01-2023 [facility] Patient Education [facility] Work Phone: Patient referral [facility] Work Phone: Thyroglobulin antibo dy measurement [facility] Thyroid stimulating immunoglobulins actual/normal in Serum [facility] Thyroperoxidase Ab [ Units/volume] in Serum or Plasma [facility] Immunizations Immunization Date Immunization Notes Care Provider [facility] 05-24-2021 SARS-CoV-2 (COVID-19 ) mRNA-[address] TASHA MARKS DO [facility] 11-20-2020 SARS-CoV-2 (COVID-19 ) mRNA-[address] TASHA MARKS DO [facility] 10-23-2020 SARS-CoV-2 (COVID-19 ) mRNA-[address] TASHA MARKS DO [facility] 11-21-2018 hepatitis A vaccine, adult dosage DR TASHA MARKS DO [facility] Comment on above: Result Comment: 2022: [employer] Payers Date Payer Category Payer Self-pay [id number] 2023 Unknown [id number] 2022 Unknown [id number] 1970 Unknown [id number] 2.16.8 [id number] 1970 Unknown [id number] 2.16.8 [id number] 1969 Unknown [id number] 2.16.8 [id number] 1970 Unknown [id number] 2.16.8 [id number] 1970 Unknown [id number] 2.16.8 [id number] Unknown [id number] 2.16.8 [id number] Unknown [id number] 2.16.8 [id number] Unknown [id number] 2.16.8 [id number] Unknown [id number] 2.16.8 [id number] Unknown [id number] 2.16.8 [id number] Unknown [id number] 2.16.8 [id number] Unknown [id number] 2.16.8 [id number] Unknown [id number] 2.16.8 [id number] Social History Date Type Detail Facility Start: 03-08-2022 End: 07-10-2023 Tobacco smoking status NHIS Unknown if ever smoked [facility] Start: 01-04-2020 None [facility] Start: 11-20-2019 Alone [facility] Start: 1970 Sex Assigned At Female [facility] Start: 09-09-2020 Tobacco smoking status Heavy t obacco smoker (finding) [facility] Sex Assigned At Sex [facility] Start: 07-31-2024 Tobacco smoking stat us NHIS Ex-smoker (finding) [facility] Start: 08-27-2024 Sex Female (finding) [facility] Mental Status Date Assessment Result Facility 07-22-2024 Cognitive function Level Of Cons ciousness Awake;Alert;Appropriate;Follow s Commands [facility] Work Phone: 04-01-2023 Cognitive function Level Of Cons ciousness Awake;Alert;Appropriate;Follow s Commands [facility] Work Phone: Clinical Notes 07-31-2024 Note Date & Type Note Facility 07-31-2024 Evaluation note Diagnosis Onset Date Resolution Hemorrhoid acute July 31 1:35pm Hemorrhoid acute August 14 1:39pm [facility] Work Phone: Evaluation + Plan note [...] Spine Cervical w/ Obliques 5 Views 06/10/22 [facility] Evaluation + Plan note Future Appointments Appointment Date:06/30/2022 04:30:00 PM Scheduled Provider:TASHA MARKS DO Location:[facility] Appointment Type:PC OV Appointment Date:09/02/2022 03:00:00 PM Scheduled Provider:TASHA MARKS DO Location:[facility] Appointment Type:PC OV Follow Up Diagnostic Tests Pending * Antinuclear Antibody Screen, Serum 06/13/22 * Rheumatoid Factor 06/13/22 Future Scheduled Tests Radiology* XR Spine Cervical w/ Obliques 5 Views 06/10/22 [facility] Evaluation + Plan note Future Appointments Appointment Date:04/05/2023 01:00:00 PM Scheduled Provider:TASHA MARKS DO Location:[facility] Appointment Type: OV Future Scheduled Tests Radiology* MA Mammo Screening Bilateral w/ Dinesh 03/29/23 [facility] Evaluation noteNo assessment information available [facility] Work Phone: Evaluation note* Diagnosis Onset Date Resolution Status Anxiety and depression acute [facility] Work Phone: Hospital course Narrative No data available for this section [facility] Hospital Discharge instructions Additional Instructions Follow-up with your primary care physician as soon as possible.[facility] Work Phone: Hospital Discharge instructions No data available for this section [facility] Progress note No data available for this section [facility] Reason for referral (narrative)No reason for referral [facility] Work [facility]: Chief Complaint and Reason [...] Will No March 08 5:38pm Power of Lumber Carrier Operator No March 08, 2022 5:38pm Advance Directive Response Recorded Date/ Time Living Will No June 04 6:46pm Power of Lumber Carrier Operator No June 04, 023 6:46pm Advance Directive Response Recorded Date/ Time Living Will No April 01 5:52pm Power of Lumber Carrier Operator No April 01, 2023 5:52pm Advance Directive Response Recorded Date/ Time Living Will No April 01 4:52pm Power of Lumber Carrier Operator No April 01, 2023 4:52pm Advance Directive Response Recorded Date/ Time Living Will No April 23, 2 023 8:21pm Power of Lumber Carrier Operator No April 23, 2023 8:21pm Advance Directive Response Recorded Date/ Time Living Will No July 22, 2 025 4:34pm Do you have a Healthcare Power of Lumber Carrier Operator? No July 22, 2024 4:34pm Summary Purpose [...] Member Role: Primary Care Physician Address: Address: [address] [place] [address] Care Team Related Persons Name: ARELY BRYANT Name: ARELY BRYANT Care Team Personnel Name: TASHA MARKS DO Position: P4 Physician - Primary Care Member Role: Primary Care Physician Address: Address: [address] [place], [place] [address] Care Team Related Persons Name: ARLEY BRYANT Name: ARELY BRYANT Patient Care team [...] October 22, 2024 End: October 22, 2024 rEic Leal MD Referring Provider Active Start : [...] section and content) DATE CREATED AUTHOR 04/20/2023 [facility] ([place]) DATE CREATED AUTHOR AUTHOR'S JONH JULIANSARA 01/21/2025 [facility] FOR RECORDS PERTAINING TO PATIENTS WHO ARE [...] BE BASED ON THE PRIMARY CLINICAL RECORDS. [employer] provides no warranty or guarantee of the accuracy or completeness of information in this document.
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
[2025-02-15 15:35] VITALS: BP 112/88; PULSE 77; RESP 16; TEMP 36.1; O2SAT 98
== END 2025-02-15 15:53 | disposition home or self-care (01) ==
PROVIDERS: Emergency Provider Emergency Medicine; PCP Family Medicine; Visit Provider Emergency Medicine
DX: S09.90XA Unspecified injury of head, initial encounter (principal); S46.912A Strain of unspecified muscle, fascia and tendon at shoulder and upper arm level, left arm, initial encounter; Z87.891 Personal history of nicotine dependence; V43.52XA Car driver injured in collision with other type car in traffic accident, initial encounter
CPT/HCPCS: 70450; 73030; 99282

== ENCOUNTER → 2025-03-25 | Outpatient (CLI) | payer MEDICAID, SELFPAY | END | disposition home or self-care (01) | LOC: MTLAB 16:42 | PROVIDERS: PCP Family Medicine; Referring Provider Family Medicine; Visit Provider Family Medicine | DX: E03.9 Hypothyroidism, unspecified (principal) | CPT/HCPCS: 36415; 84443 ==

== ENCOUNTER 2025-04-16 15:02 | Outpatient (RCR) | payer MEDICAID, SELFPAY | END 2025-04-27 23:59 | LOC: NS 15:02 | PROVIDERS: PCP Family Medicine; Referring Provider Family Medicine; Visit Provider Family Medicine | DX: Z71.3 Dietary counseling and surveillance (principal); E66.9 Obesity, unspecified; Z68.32 Body mass index [BMI] 32.0-32.9, adult | CPT/HCPCS: 97802 ==

== ENCOUNTER → 2025-05-12 | Outpatient (CLI) | payer MEDICAID, SELFPAY | END | disposition home or self-care (01) | LOC: MTLAB 13:28 | PROVIDERS: PCP Family Medicine; Visit Provider Family Medicine | DX: E03.9 Hypothyroidism, unspecified (principal) | CPT/HCPCS: 36415; 84443 ==